=== PATIENT | female | born 1930 | race Caucasian/White ===

== ENCOUNTER 2017-04-21 13:22 | Emergency (ER) | payer MEDICARE, OTHER ==
[~2017-04-21] VITALS: Ht 160 cm; Wt 48.1 kg
[~2017-04-21 13:22] MED LIST: ADULT LOW DOSE81 MG PO; AMOXICILLIN500 M1 PO; ARMOUR THYROID30 MG PO; BIAXIN500 MG PO; IBUPROFEN600 MG PO; LISINOPRIL-HCT1 EACH PO; METOPROLOL TART50 MG PO; NORCO 5-325 TA1 EACH PO; NORVASC5 MG PO; OCUVITE TABLET1 EAC1 PO; PRILOSEC OTC20 MG PO; SIMVASTATIN40 MG PO; TRAMADOL HCL50 MG PO
[2017-04-21] MEDS ORDERED: ASPIR-LOW81 MG PO (14:18)
[2017-04-21] MEDS ORDERED: CIPRO500 MG PO (15:35)
--- NOTE | 2017-04-21 19:53 | EKG ---
[facility] [address] [place] [address] Signed Normal sinus rhythm Normal ECG When compared with ECG of 03-DEC-2015 13:38, premature ventricular complexes are no longer present Confirmed by ALEXIS CULP MD ([id number]) on 04/21/2017 7:53:18 PM Electronically Signed By: ALEXIS CULP MD 04/21/171952 PATIENT NAME: LAUREN KENT Electrocardiogram DATE OF : 34 PHYSICIAN: ALEXIS CULP MD REPORT #: [id number] REPORT IS CONFIDENTIAL AND NOT TO BE RELEASED WITHOUT AUTHORIZATION
== END 2017-04-21 16:58 | disposition home or self-care (01) ==
LOC: ED 13:22
PROC: 0T9B70Z Drainage of Bladder with Drainage Device, Via Natural or Artificial Opening (ICD-10-PCS; principal; 2017-04-21)
DX: N39.0 Urinary tract infection, site not specified (principal); I10 Essential (primary) hypertension; E03.9 Hypothyroidism, unspecified; Z85.3 Personal history of malignant neoplasm of breast; Z88.8 Allergy status to other drugs, medicaments and biological substances; Z79.899 Other long term (current) drug therapy; Z79.82 Long term (current) use of aspirin
CPT/HCPCS: 51701; 70450; 71045; 80053; 81001; 83605; 84484; 85025; 87077; 87088; 87186; 93005; 93010; 96374; 96375; 99284; J0696; J1200; J1956; J7120

== ENCOUNTER 2017-06-20 08:16 | Inpatient (IN) | payer MEDICARE, OTHER ==
[~2017-06-20] VITALS: Ht 160 cm; Wt 43.1 kg
--- OUTSIDE RECORDS SUMMARY | ~2017-06-20 | XMS | Clinical Summary ---
Demographics + + + | Address | [address] [place] [address] | | | [place] [address] | + + + | Home Phone | | + + + | Preferred Language | Unknown | + + + | Marital Status | | + + + | Yazdanism Affiliation | Unknown | + + + | Race | Unknown | + + + | Ethnic Group | Unknown | + + + Author + + + | Author | [facility] | | | and Javierana | + + + | Organization | [facility] | | | and Javierana | + + + | Address | Unknown | + + + | Phone | Unavailable | + + + Support + + +---------+ + | Name | Relationship | Address | Phone | + + +---------+ + | Lety Graf | ECON | Unknown | | + + +---------+ + Care Team Providers + +------+ + | Care Consumer Credit Counselor Name | Role | Phone | + +------+ + | Reza Layne | PP | | | MD | | | + +------+ + Allergies No Known Allergies Current Medications + + +---------+---------+------+------+-------+ | Prescription | Sig. | Disp. | Refills | Star | End | Statu | | | | | | t | Date | s | | | | | | Date | | | + + +---------+---------+------+------+-------+ | simvastatin | Take 40 mg by mouth | | | | | Activ | | (ZOCOR) 40 mg tablet | nightly. | | | | | e | + + +---------+---------+------+------+-------+ | metoprolol | Take 50 mg by mouth | | | | | Activ | | tartrate (LOPRESSOR) | 2 times daily. | | | | | e | | 50 mg tablet | | | | | | | + + +---------+---------+------+------+-------+ | thyroid (ARMOUR | Take 30 mg by mouth | | | | | Activ | | THYROID) 30 mg | Daily. | | | | | e | | tablet | | | | | | | + + +---------+---------+------+------+-------+ | aspirin 81 mg EC | Take 81 mg by mouth | | | | | Activ | | tablet | Daily. | | | | | e | + + +---------+---------+------+------+-------+ | multiple vitamins | Take 1 tablet by | | | | | Activ | | w/minerals (OCUVITE) | mouth Daily. | | | | | e | | TABS | | | | | | | + + +---------+---------+------+------+-------+ | Flaxseed, Linseed, | Take by mouth 2 | | | | | Activ | | (FLAXSEED OIL) 1000 | times daily. | | | | | e | | MG CAPS | | | | | | | + + +---------+---------+------+------+-------+ | cholecalciferol | Take 5,000 Units by | | | | | Activ | | (VITAMIN D-3) 5000 | mouth Daily. | | | | | e | | UNITS TABS | | | | | | | + + +---------+---------+------+------+-------+ | vitamin E 1000 | Take 1,000 Units by | | | | | Activ | | UNITS capsule | mouth 2 times daily. | | | | | e | + + +---------+---------+------+------+-------+ | amLODIPine | Take 5 mg by mouth | | | | | Activ | | (NORVASC) 5 mg | Daily. | | | | | e | | tablet | | | | | | | + + +---------+---------+------+------+-------+ | acetaminophen | Take 500 mg by mouth | | | | | Activ | | (TYLENOL) 500 mg | every 4 hours as | | | | | e | | tablet | needed for Pain. | | | | | | + + +---------+---------+------+------+-------+ | traMADol (ULTRAM) | Take 1 tablet by | 90 | 0 | 06/0 | | Activ | | 50 mg tablet | mouth every 6 hours | tablet | | 6/20 | | e | | | as needed for Pain. | | | 17 | | | + + +---------+---------+------+------+-------+ | gabapentin | 1 tab PO nightly x 5 | 120 | 0 | 06/0 | | Activ | | (NEURONTIN) 300 mg | days, then increase | capsule | | 6/20 | | e | | capsule | to 1 tab PO BID x 5 | | | 17 | | | | | days. If continue | | | | | | | | to tolerate well, | | | | | | | | increase to 1 tab PO | | | | | | | | TID. 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 | 04/13/2015 | + + + Family History + + +------+ + | Medical History | Relation | Name | Comments | + + +------+ + | Gout | Child | | | + + +------+ + | Lung cancer | Mother | | | + + +------+ + | Stroke | Mother | | | + + +------+ + | Diabetes | Other | | [place] | + + +------+ + + +------+ + + | Relation | Name | Status | Comments | + +------+ + + | Child | | Alive | | + +------+ + + | Child | | Alive | | + +------+ + + | Child | | | | + +------+ + + | Mother | | | | | | | (Age | | | | | 86) | | + +------+ + + | Other | | | | + +------+ + + Social History + +-------+ +--------+------+ | Tobacco Use | Types | Packs/Day | Years | Date | | | | | Used | | + +-------+ +--------+------+ | Never Smoker | | | | | + +-------+ +--------+------+ + +---+---+---+ | Smokeless Tobacco: | | | | | Never Used | | | | + +---+---+---+ + + +---------+ + | Alcohol Use | Drinks/We | oz/Week | Comments | | | ek | | | + + +---------+ + | No | 0 | 0.0 | | | | Standard | | | | | drinks or | | | | | | | | | | equivalen | | | | | t | | | + + +---------+ + + + + | Sex Assigned at | Date Recorded | | | | + + + | Not on file | | + + + Last Filed Vital Signs + + + + | Vital Sign | Reading | Time Taken | + + + + | Blood Pressure | 178/75 | 08/24/20161311 PDT | + + + + | Pulse | 82 | 08/24/20161311 PDT | + + + + | Temperature | - | - | + + + + | Respiratory Rate | - | - | + + + + | Oxygen Saturation | - | - | + + + + | Inhaled Oxygen | - | - | | Concentration | | | + + + + | Weight | 47.6 kg (105 lb) | 07/26/2016 1000 PDT | + + + + | Height | 160 cm (5' 3") | 07/26/2016 1000 PDT | + + + + | Body Mass Index | 18.6 | 07/26/2016 1000 PDT | + + + + Plan of Treatment + + + + + | Health Maintenance | Due Date | Last Done | Comments | + + + + + | Vaccine: | | | | | Dtap/Tdap/Td (1 - | 2 | | | | Tdap) | | | | + + + + + | Vaccine: | | | | | Pneumococcal 65+ | 8 | | | | Low/Medium Risk (1 | | | | | of 2 - PCV13) | | | | + + + + + | Vaccine: Influenza | | | | | (Season Ended) | 8 | | | + + + + + Results Not on filefrom Last 3 Months Insurance + +--------+ +--------+ +---------+ | Payer | Benefi | Subscriber | Type | Phone | Address | | | t Plan | ID | | | | | | / | | | | | | | Group | | | | | + +--------+ +--------+ +---------+ | MEDICARE | MEDICA | xxxxxxxxxx | Medica | [phone]-- | | | | RE | | re | [id number] | | | | PART A | | | | | | | AND B | | | | | + +--------+ +--------+ +---------+ | INDIVIDUAL ASSURANCE | INDIVI | [id number] | Indemn | | | | COMPANY | DUAL | | ity | | | | | ASSURA | | | | | | | NCE CO | | | | | | | MDCR | | | | | | | SUPPL | | | | | + +--------+ +--------+ +---------+ + +--------+ +--------+ + + | Guarantor Name | Accoun | Relation to | Date | Phone | Billing Address | | | t Type | Patient | of | | | | | | | | | | + +--------+ +--------+ + + | LAUREN VERDIN | Person | Self [birth year] | Home: | [address] [facility] [facility] | | [place] | padilla/Prasad | | 1931 | [phone] | [place] [address] | | | [place] | | | [phone] | | + +--------+ +--------+ + +
--- OUTSIDE RECORDS SUMMARY | ~2017-06-20 | XMS | Clinical Summary ---
Demographics + + + | Address | [address] [place] [address] | | | [place] [address] | + + + | Home Phone | | + + + | Preferred Language | Unknown | + + + | Marital Status | | + + + | Mormon Affiliation | Unknown | + + + | Race | Unknown | + + + | Ethnic Group | Unknown | + + + Author + + + | Author | [facility] | | | and Javierana | + + + | Organization | [facility] | | | and Javierana | [...] Team Providers + +------+ + | Care Cherry Sorter Name | Role | Phone | + [...] | Self | [birth year] | Home: | [address] [address] [facility] | | A[place]DRA | padilla/Prasad | | 1931 | [phone] | [place] [address] | | | [place] | | | [phone] | | + +--------+ +--------+ + +
--- OUTSIDE RECORDS SUMMARY | ~2017-06-20 | XMS | Clinical Summary ---
Demographics + + + | Address | [address] [place] [address] | | | [place] [address] | + + + | Home Phone | | + + + | Preferred Language | Unknown | + + + | Marital Status | | + + + | Adventist Affiliation | Unknown | + + + | Race | Unknown | + + + | Ethnic Group | Unknown | + + + Author + + + | Author | [facility] | | | and Javierana | + + + | Organization | [facility] | | | and Javierana [...] Team Providers + +------+ + | Care Dobby Loom Fixer Name | Role | Phone | + [...] | Self | [birth year] | Home: | [address] [facility] | | [place]A | padilla/Prasad | | 1931 | [phone] | [place] [address] | | | [place] | | | [phone] | | + +--------+ +--------+ + +
[~2017-06-20 08:16] MED LIST changes: +ASPIR-LOW81 MG PO; +CIPRO500 MG PO
[2017-06-20] MEDS ORDERED: NITROFURANTOIN100 M1 PO (08:31)
--- NOTE | 2017-06-20 13:19 | NUR ---
received report from Salome ROBBINS in ED via telephone. all questions answered.
--- NOTE | 2017-06-20 13:24 | NUR ---
MED REC COMPLETE WITH [facility] REFILL HISTORY.
--- NOTE | 2017-06-20 15:27 | NUR ---
PATIENT LYING IN BED WITH DAUGHTER AT BEDSIDE. 2MG MORPHINE GIVEN FOR LEFT FLANK PAIN. IVF INFUSING NOW AT 85ML/HR.
--- NOTE | 2017-06-20 16:42 | NUR ---
THIS RN CALLED DR HALL TO SEE WHEN HE WILL BE ASSESSING THIS PATIENT. REPORTS HOPEFULLY IN THE "NEXT HALF HOUR OR SO". PATIENT COMFORTABLE IN HER ROOM AFTER MORPHINE GIVEN. NO NAUSEA. MOST LIKELY PLAN FOR UPPER SCOPE.
--- NOTE | 2017-06-20 16:42 | NUR ---
patient resting in bed, family in room. Fresh ice water at bedside table. Call light in reach. No other needs at this time.
--- NOTE | 2017-06-20 17:48 | NUR ---
D5LR @ 85. KCL 30MEQ RIDERS X3. NEEDS ENDOSCOPY. HX RIGHT MASTECTOMY. EXTREMITY RESTRICTED. POTASSIUM 2.8 AT ADMIT.
--- NOTE | 2017-06-20 18:06 | NUR ---
THIS STOCK GRADER ASSISTED PATIENT UP TO BATHROOM AND BACK TO BED. PATIENT RESTING, FAMILY IN ROOM. CALL LIGHT IN REACH. FRESH ICE WATER AT BEDSIDE TABLE. NO OTHER NEEDS AT THIS TIME.
--- NOTE | 2017-06-20 20:06 | NUR ---
RECEIVED REPRT FROM DAY SHIFT RN. PATIENT IS RESTING IN BED. NO NEEDS NOTED CALL LIGHT IN REACH.
--- NOTE | 2017-06-20 21:05 | NUR ---
PATIENT ASSESMENT COMPLETED. EVENING MEDICATIONS GIVEN PER ORDER. PATIENT RATES PAIN AT A 5/10. PATIENT JUST RECEIVED IV TYLENOL. PATIENT DENIES THE NEED FOR FURTHER PAIN MEDICATIONS AT THIS TIME. PATIENT ASSISTED TO THE BSC A 1PA, PIVOT TRANSFER. PATIENT WAS ABLE TO VOID. PATIENT IS NOW BACK IN BED RESTING. SCDS IN PLACE. NO FURTHER NEEDS NOTED. CALL LIGHT IN REACH.
--- NOTE | 2017-06-20 22:00 | NUR ---
PATIENT CALLED AND REQUESTED PAIN MEDICATON. WHEN ROOM WAS ENTERED. PATIENT WAS CHAKING AND CRYING. PATIENT RATED HELENE AT AN 8/10 IN HER LEFT FLANK AREA TO LLQ. PATIENT GIVEN PRN PAIN MEDICATION AT THIS TIME. NO FURTHER NEEDS NOTED. CALL LIGHT IN REACH.
--- NOTE | 2017-06-20 22:45 | NUR ---
PATIENT ASSISTED TO THE BSC. PATIENT RATES PAIN AT A 6/10. PATIENT APPEARS TO STILL BE IN A LOT OF PAIN. PATIENT REQUESTED MORE PAIN MEDICATION. PATIENT GIVEN PRN PAIN MEDICATION TO TITRATE TO THE MAX DOSE. PATIENT WAS ABLE TO VOID. PATIENT IS BACK IN BED RESTING, SCDS IN PLACE. NO FURTHER NEEDS NOTED. NO NAUSEA NOTED. CALL LIGHT IN REACH.
--- NOTE | 2017-06-20 23:19 | NUR ---
PATIENT RECEIVED THE MAX DOSE OF PRN IV PAIN MEDCAITON. PATIENT PLACED ON A PULSE OX TO MONITOR WHILE SHW SLEEPS. PATIENT RATES PAIN AT A 4/10. PATIENT STATES "I AM COMFORTABLE NOW". NO FURTHER NEEDS NOTED. CALL LIGHT IN REACH.
--- NOTE | 2017-06-21 01:40 | NUR ---
PATIENTS IV TYLENOL GIVEN PER ORDER. PATIENT RATES PAIN AT A 4/10. PATIENT EDUCATED ON BEING NPO. PATIENT VERBALIZES UNDERSTANDING. PATIENT DENIES ANY FURTHER NEEDS AT THIS TIME. CALL LIGHT IN REACH.
--- NOTE | 2017-06-21 03:50 | NUR ---
PATIENT IS RESTING IN BED WITH EYES CLOSED. BREATHING IS EVEN AND UNLABORED. PULSE OX READINGS ARE WNL. CALL LIGHTIN REACH.
--- NOTE | 2017-06-21 05:27 | NUR ---
PATIENT RESTED WELL THROUGHTOUT THE SHIFT. PATIENT HAS BEEN NPO SINCE MDINIGHT. PATIENT RECEIVE PRN PAIN MEDICATION X2. PATIENT IS A 1PA, PIVOT TRANSFER TO THE [facility]. PATIENT HAS SCS IN PLACE. PATIENT IS RIGHT ARM RESTRICTED. PATIENT HAS URGENCY AT TIMES. OUTPUT IS QS. PATIENT IS AAOX3 AND USES CALL LIGHT.
--- NOTE | 2017-06-21 05:47 | NUR ---
PATIENT ASSISTED TO THE BSC. PATIENT IS A 1PA-SBA TO THE BS. PATIENT WAS ABLE TO VOID. PATIENT IS BACK IN BED RESTING WITH SCDS IN PLACE. PATIENT RATES PAIN AT A 5/10. PATIENT GIVEN SCHEDULED TYLENOL PER ORDER. PATIENTS MORNING ABX GIVEN PER ORDER. PATIENT DENIES ANY FURTHER NEEDS AT THIS TIME. CALL LIGHT IN REACH. VITALS TAKEN AND RECORDED.
--- NOTE | 2017-06-21 05:57 | NUR ---
PATIENT STARTED TO FEEL NAUSEOUS. PATIENT GIVEN PRN ZOFRAN.
--- NOTE | 2017-06-21 06:48 | NUR ---
PATIENT IS RESTING IN BED. PATIENT NAUSEA HAS SUBSIDED. NO FURTHER NEEDS NOTED. CALL LIGHT IN REACH.
--- NOTE | 2017-06-21 07:20 | NUR ---
PATIENT IN BED ULTRA SOUND TECH IN ROOM.
--- NOTE | 2017-06-21 07:51 | NUR ---
CALLED DR. HALL FOR NEW ORDER OF IV PAIN MEDICATION. PATIENT REPOSITIONED IN BED TO SIDE BY STUDENT NURSE. BLANKLET TO BACK. WASHCLOTH TO FA. PATIENT STATING HER BACK IS CAUSING A LOT OF PAIN. CRYING AND SHAKING AT ONE POINT. 2 MG MORPHINE GIVEN. ZOFRAN GIVEN EARLIER. EDUCATED ABOUT MEDICATION AND THE NEED TO GET MORE IF NEEDED.
--- NOTE | 2017-06-21 08:13 | NUR ---
PT REPORTS PAIN 8/10 AT HER BACK THIS IS NOT NEW FOR HER, SHE USUALLY HAS MEDICATIONS ON BOARD TO MANAGE IT. THIS BACK PAIN MADE WORSE THIS AM AFTER ULTRASOUND COMPLETE.
--- NOTE | 2017-06-21 09:00 | NUR ---
THIS NOCTURNIST PHYSICIAN WHEN IN ROOM TO CHECK ON PATIENT. PATIENT IS LAYING ON RIGHT SIDE WITH EYES CLOSE CRYING AND SHAKING. PATIENT STATED THAT SHE'S IN ALOT OF PAIN. RN NOTIFIED.
--- NOTE | 2017-06-21 09:08 | NUR ---
nino remains in pain. lower l back. called dr. taylor for new pain medication. dr. taylor ordered new pain medication. toradol 30mg iv once. updated patient and daughter that is in the room.
--- NOTE | 2017-06-21 09:50 | NUR ---
PATIENT RESTING IN BED AND STATES THAT SHE FEELS SO MUCH BETTER. FAMILY, RN AND STUDENT NURSE IN ROOM. NO NEEDS AT THIS TIME.
--- NOTE | 2017-06-21 09:52 | NUR ---
TORADOL IS TREATING PAIN AT THIS TIME. PATIENT STATING HER PAIN HAS NOW DECREASED FROM 10/10 TO 6/10. PATIENT IS ABLE TO LAUGH AT THIS TIME. STUDENT TO BE IN TO ASSIST WITH MORNING MEDICATION. HOLDING ALL PO MEDS AT THIS TIME.
--- NOTE | 2017-06-21 10:55 | NUR ---
PATIENT CALLED DUE TO HER PAIN STARTING TO INCREASE. 2 MG OF IV MORPHINE GIVEN. PATIENT ABLE TO RESTING FLAT IN BED. DAUGHTER IN ROOM. I ANDPO'S COMPLETE. PATIENT REMAINS NPO.
--- NOTE | 2017-06-21 11:22 | NUR ---
patient resting on r side. patient stating pain improved a small amount. no nausea at this time. patient stated she is able toget a little rest. dr. taylor to the floor at this time.
--- NOTE | 2017-06-21 11:44 | NUR ---
DR. HALL ROUNDED IN ROOM. PLAN TO GO TO SURGERY AT 230 FOR EGD
--- NOTE | 2017-06-21 12:15 | NUR ---
PATIENT RESTING IN BED WITH FAMILY IN ROOM PATIENT WOULD LIKE TO SHOWER AFTER HER SCOPE. HANDS AND FACE WASHED. PATIENT REFUSED ORAL CARE. PATIENT IS IN GOOD MOOD AND JOKING AROUND AND SMILING. CALL BUTTON IN REACH. NO OTHER NEEDS AT THIS TIME.
--- NOTE | 2017-06-21 13:01 | NUR ---
patient stating pain starting to increase to 8/10. 2 mg of morphine and 4 mg of zofran given. ekg done. lr with straight tubing in room for surgery.
--- NOTE | 2017-06-21 13:57 | NUR ---
PATIENT ASSISTED TO THE BS. PATIENT TOLERATED WELL. PATIENT REMAINS WEAK, BUT WAS ABLE TO TRANSFER WITH A ONE ASSIST. PATIENT AWAITING DAYSURGERY AT THIS TIME.
--- NOTE | 2017-06-21 14:25 | NUR ---
PT LAYING IN BED-ALERT, ORIENTED AND SUPPORTED BY HER DAUGHTER. SHE HAS A RATHER LIGHT-HEARTED MANNER. EXCITED TO HAVE ME COME BY. SHE STATED SHE IS HERE WAITING FOR SCOPE AT 1430, AND POSSIBLY SURGERY FOLLOWING. SHE DEFINATELY HAS "SPUNK", REACHED OUT TO HOLD MY HAND. PT REQUESTED PRAYER, THANKED ME FOR PRAYING, WILL CONTINUE TO FOLLOW NEEDED
--- NOTE | 2017-06-21 14:33 | NUR ---
PT TO DAYSURGERY WITH RN. LR ON SRTAIGHT TUBING. ANCEF DOSE ESL PROFESSOR FOR OR. REPORT GIVEN TO RN.
--- NOTE | 2017-06-21 16:28 | NUR ---
06/21/17 1628 Mar Peterson 1609-PATIENT ARRIVED TO PACU ON 3L NC. PATIENT AWAKE KETAMINE GTT INFUSING TO IV. PATIENT HAS CHRONIC PAIN REPORTS PAIN 6/10 WHICH IS SAME AT HOME. 1615-PATIENT NAUSEATED ABLE TO BRING UP CLEAR EMESIS. DRY HEAVING, BURPING HOB SAT UP. WASHCLOTH TO FOREHEAD. 1621-GLEN [employer] SHEET METAL MECHANIC ADMINISTERED METOPROLOL THROUGH IV FOR BP ELEVATED 184/76 HR 110
--- NOTE | 2017-06-21 17:29 | EKG ---
[facility] [address] [place] [address] Signed Normal sinus rhythm Possible Left atrial enlargement Borderline ECG When compared with ECG of 21-APR-2017 13:53, No significant change was found Confirmed by ALEXIS CULP MD ([id number]) on 06/21/2017 5:29:01 PM Electronically Signed By: ALEXIS CULP MD 06/21/17 1729 PATIENT NAME: HANNAH KENTROSENDO MONTAÑOARET Electrocardiogram DATE OF : 34 PHYSICIAN: ALEXIS CULP MD REPORT #: [id number] REPORT IS CONFIDENTIAL AND NOT TO BE RELEASED WITHOUT AUTHORIZATION
--- NOTE | 2017-06-21 18:10 | NUR ---
nino back to the room from pacu. pacu nurse and digital forensic analyst following patient. patient sitting up on stretcher. patient attmpeted to get over to bed before ready. needing reminding. patient needing a little reoriented to room. family at bedside. vitals taken. report given from [employer] intern.
--- NOTE | 2017-06-21 18:23 | NUR ---
PATIENT CONFUSED ONCE BACK TO BED. PATIENT HAVING SOME URINE URGANCY AND ATTEMPTING TO GET OUT OF BED TO GO TO . REORIENTED WELL. ASSISTED TO THE BSC WITH ASSISTANCE. PATIENT VOIDED. ATTEMPTS CHANGED. ASSISTED BACK TO BED. DAUGHTER IN ROOM TO ASSIST. PATIENT RATING PAIN 7/10. NO NAUSEA AT THIS TIME. PATIENT REFUSING CLEARS AT THIS TIME.
--- NOTE | 2017-06-21 18:53 | NUR ---
PATIENT RESTING IN BED. FAMILY AT BEDSIDE. BED ALARM IN PLACE. VITALS TAKEN. PAIENT BECOMING MORE ORIENTED. ANSWER CORRECT FOR DATE, YEAR, LOCATION, AND PROCEDURE. NEEDING REMINDED ABOUT HER DOCTOR. PATIENT TOLERATED SEVERAL BITES OF JELLO AND SIPS OF WATER. NO NAUSEA AT THIS TIME. PAIN CONTINUES TO BE AT A 6/10. PATIENT IS LAUGHING AND TALKING AT THIS TIME.
--- NOTE | 2017-06-21 20:07 | NUR ---
RECEIVED REPORT FROM DAY SHIFT RN. PATIENT IS RESTING IN BED FAMILY IN TH ROOM, BUT THEY ARE LEAVING FOR THE EVENING. PATIENT IS IN AND OUT OF CONFUSION. PATIENT TRIED TO GET OUT OF BED WITHOUT CALLING. PATIENT HAS BEEN FORGETFUL SINCE SURGERY AND CONFUSED. PATIENT MOVED FROM 115 TO ROOM 111 FOR BETTER OBSERVATION. BED ALARM IS ON AND CALL LIGHT IN REACH.
--- NOTE | 2017-06-21 21:46 | NUR ---
PATIENT ASSESMENT COMPLETED. PATIENTS EVENING MEDICATIONS GIVEN PER ORDER. PATIENTS BP MEDICATION HELD BP WAS UNDER HOLD PARAMETER. PATIENT RATES PAIN AT AN 8/10. DISCUSSED PAIN MEDICATION OPTIONS. PATIENT REQUEST TORADOL. PATIENT GIVEN PRN TORADOL PER ORDER. PATIENT DENIES ANY NAUSEA AT THIS TIME. SCDS IN PLACE. PATIENT IS OREINTED TO TIME, PLACE, AND EVENT. PATIENT IS FORGETFUL AT TIMES. PATIENT REORIENTS EASILY. PATIENT DENIES ANY FURTHER NEEDS AT THIS TIME. CALL LIGHT IN REACH.
--- NOTE | 2017-06-21 22:10 | NUR ---
PATIENT ASSISTED TO THE BS. PATIENT IS A SBA PIVOT TRAN[place] [facility] PATIENT WAS ABLE TO VOID. PATIENT IS NOW BACK IN BED RESTING. PATIENT HAS SCDS IN PLACE. PATIENT RATES PAIN AT AN 8/10. PATIENT GIRN PRN PAIN MEDICATION PER ORDER. PATIENT DENIES ANY FURTHER NEEDS. BED ALARM ON. CALL LIGHT IN REACH.
--- NOTE | 2017-06-21 23:03 | NUR ---
PATIENT IS RESTING IN BED WITH EYES CLOSED. PULSE OX READINGS ARE WNL. PATIENT IS ON RA. SCDS IN PLACE. BED ALRM ON. CALL LIGHT IN REACH.
--- NOTE | 2017-06-22 01:14 | NUR ---
PATIENT USED CALL LIGHT. PATIENT ASKED IF SHE HAD MISSED HER SURGERY. PATIENT EDUCATED THAT IT WAS NOT TIME FOR SURGERY. PATIENT VERBALIZES UNDERSTANDING. PATIENT RATES PAIN AT A 4/10. PATIENT DENIES THE NEED FOR PAIN MEDICATION. PATIENT DENIES ANY NAUSEA. PATIENT DENIES ANY FURTHER NEEDS CALL LIGHT IN. REACH. BED ALARM ON FOR SAFETY.
--- NOTE | 2017-06-22 01:53 | NUR ---
VITALS AND I&OS DONE AND CHARTED. PT NEEDS NOTHING ELSE AT THIS TIME.
--- NOTE | 2017-06-22 02:43 | NUR ---
WHEN CHECKING ON PATIENT IT WAS NOTICED THE PATIENT HAS REMOVED HER OXYGEN. PATIENT SPOT CHECKED WHILE ASLEEP. PATIENTS OXYGEN SATURATION IS 93%. WILL LEAVE OXYGEN OFF FOR NOW AND CONTINUE TO MONITOR. BED ALARM ON AND CALL LIGHT IN REACH. RR 17.
--- NOTE | 2017-06-22 03:34 | NUR ---
PATIENT IS RSETING IN BED WITH EYES CLSOED. PULSE OX READINGS ARE WNL. PATIENT ON RA. SCDS IN PLACE.
--- NOTE | 2017-06-22 04:47 | NUR ---
PATIENT ASSISTED TO THE BSC. PATIENT WAS ABLE TO VOID. PATIENTS PRE SURGICAL WIPE DOWN COMPLETED. PATIENT IS BACK IN BED RESTING. PATIENT DENIES ANY PAIN OR NAUSEA. PATIENT DENIES ANY FURTHER NEEDS CALL LIGHT IN REACH. BED ALARM ON FOR SAFETY.
--- NOTE | 2017-06-22 05:16 | NUR ---
PATIENTS MORNING MEDCIATIONS GIVEN PER ORDER. PATIENTS PRE PROCEDURE CHECK LIST COMPLETED. PATIENTS REQUIRED PAPER WORK IS IN THE CHART. NO NEEDS NOTED. PATIENT DENIES NAUSEA. PAIN RATED AT A 4/10. PATIENT DENIES THE NEED FOR PAIN MEDICATION AT THIS TIME. BED ALARM ON FOR SAFETY. CALL LIGHT IN REACH.
--- NOTE | 2017-06-22 05:18 | NUR ---
PATIENT RESTED WELL THROUGHTOUT THE SHIFT. PATIENT HAS BEEN NPO SINCE MIDNIGHT. PATIENT IS A SBA TO THE [facility]. VOIDING QS. RIGHT ARM RESTRICTED. LEFT WRIST BPS ONLY. SCDS IN PLACE. PATIENT WAS FORGETFUL AND CONFUSED AT TIMES AT THE BEGINNING OF THE SHIFT. PATIENT IS AAOX3 THIS AM. PATIENT RECEIVED PRN PAIN MEDICATION X2. PATIENTS SURGERY PREP COMPLETED. IV INFUSING IN LEFT UPPER ARM.
--- NOTE | 2017-06-22 05:31 | NUR ---
PER PT REQUEST I GAVE HER A WARM BLANKET.
--- NOTE | 2017-06-22 06:49 | NUR ---
DAY SURGERY STAFF CAME AND TRANSFEERED PATIENT FOR SURGERY TODAY. ALL QUESTIONS ANSWERED.
--- NOTE | 2017-06-22 07:37 | NUR ---
REPORT RECEIVED FROM HANNAH. PATIENT OFF THE FLOOR TO SURGERY AT ABOUT 0700 THIS AM.
--- NOTE | 2017-06-22 09:44 | NUR ---
06/22/17 0944 Mar Peterson 0961-PATIENT ARRIVED TO PACU ON 4L NC O2 SAT 100% PATIENT REACTIVE EYES OPEN BACK TO SLEEP. RR EVEN. SR 3 LAP SITES TO ABDOMEN LEONIDAS DRAIN IN PLACE SANGUINOUS DRAINAGE. BISHOP IN PLACE.
--- NOTE | 2017-06-22 11:28 | NUR ---
PATIENT TO FLOOR FROM PACU AT ABOUT 1055. REPORTED RECEIVED FROM PACU NURSE MANJULA. PATIENT AWAKE ALERT AND ORIENTED. REPORT PAIN AT THE RIGHT QUADRAND, RATED AT 5/10. PATIENT WAS MEDICATED. 2 LAP SITES ON THE MID ABD AND LEONIDAS DRAIN ON THE RLQ. PATIENT DENIED NAUSEA AT THIS TIME. MORNING MEDS ADMINISTERED. VS STABLE AND WNL. IV SITE PATENT AND FLUID INFUISING. VS TAKEN AND WNL. PATIENT IS TITRATED TO 1L OF 02 VIA NC AND SAT @ 96-98%. NO APPARENT DISTRESS. FAMILY AT BEDSIDE. WILL CONTINUE TO MONITOR.
--- NOTE | 2017-06-22 12:36 | NUR ---
PATIENT CALLED AND REQUESTED SOME PAIN MED FOR RIGHT QUADRANT PAIN THAT SHE RATED @ 6/10. PATIENT WAS MEDICATED. PATIENT DENIES NAUSEA AT THIS TIME. WILL CONTINUE TO MONITOR.
--- NOTE | 2017-06-22 14:30 | NUR ---
IN TO ROOM TO CHECK ON PATIENT. PATIENT REPORTED THAT HER PAIN IS BETTER. HAD SOME WATER. STATED THAT SHE DOES NOT WANT TO EAT ANYTHING AT THIS TIME, WILL EAT SOME JELLO FOR DINNER. RESTING IN BED QUIETLY. WILL CONTINUE TO MONITOR.
--- NOTE | 2017-06-22 14:33 | NUR ---
VISITED WITH PT JUST BEFORE SURGERY. STILL ALERT AND SPUNKY! REQUESTED PRAYER, WILL CONTINUE TO FOLLOW
--- NOTE | 2017-06-22 14:34 | NUR ---
CONNECTED WITH PT AND DAUGHTER DONOVAN BACK IN HER M/S RM FOLLOWING SURGERY. SHE WAS WRAPPED IN WARM TOWELS, AND VERY ALERT. WILL LET PT REST, AND CONTINUE TO FOLLOW NEEDED
--- NOTE | 2017-06-22 16:45 | NUR ---
PATIENT CALLED AND REPORTED 08/29 ABD. PATIENT WAS MEDICATED. PATIENT RESTING IN BED VS TAKING AND WNL. 02 SAT 95 ON O.5L VIA NC AND HR 80-85 PER PULSE OXYMETER. RESTING IN BED AT THIS TIME. FAMILY AT BEDSIDE.
--- NOTE | 2017-06-22 18:33 | NUR ---
PATIENT HAD DONE WELL FOR THIS SHIFT. HAD SURGERY THIS AM ABD DONE WELL AFTER COMING TO THE FLOOR. HAD 2 LAP SITES IN MID ABD AND LEONIDAS DRAIN ON THE RIGHT LOWER QUADRANT.BISHOP IN PLACE AND DRAINING WELL. IV SITE PATENT AND FLUID INFUSING @ 85ML/HR. PATIENT IS ON CLEAR LIQUID. TOLERATED WELL. NO NAUSEA. NO FEVER. PATIENT IS ON CONT. PULSE OX. CALL APPROPRIATELY. VS WNL.
--- NOTE | 2017-06-22 19:32 | NUR ---
BEDSIDE REPORT FROM ADA ROBBINS PT REPORTS PAIN 7 TORDOL I.V. GIVEN AT THIS TIME. PT REPORTS PAIN IS AT HER BACK NOT ABD. SHE REPORTS SHE IS FEELING BETTER TONIGHT AND WANTS TO GO HOME SOON.
--- NOTE | 2017-06-22 20:58 | NUR ---
CHARGE NURSE ROUNDING NOTE: IN BED, NO C/O PAIN OR RERQUESTS AT THIS TIME. CALL LIGHT AT BEDSIDE.IVF INFUSING W/O PROBLEMS, F/C PATENT, SCDS IN PLACE, PT ON ROOM AIR
--- NOTE | 2017-06-23 00:34 | NUR ---
PT RESTING QUIETLY IN BED EYES CLOSED NO DISTRESS NOTED. PT APPEARS TO BE SLEEPING
--- NOTE | 2017-06-23 01:27 | NUR ---
PT WOKE DISORIENTED, SHE REPORTS SPUSHED THE SIDE TABLE INTO GLASS DOOR, RN TO ROOM PT SITTING AT BEDSIDE, SHE REPORTS THE PAIN HAS MOVED AND IS AT HER RLQ. RE-ORIENTED PT THAT SHE HAD SURGERY AND SHE HAS A DRAIN TUBE AT THAT SPOT. SHE THEN SAID "OH, YEAH, OK" PT SETTLED BACK TO BED. SHE SAID SHE NEEDED A PAD FOR BETWEEN HER LEGS, PT REMINDED SHE HAS A BISHOP CATHETER IN PLACE. PT ADMINSTERED TORDOL AND MORPHINE PRN AT THIS TIME FOR PAIN 6/10 AT RLQ. PT NOW RESTING IN BED.
--- NOTE | 2017-06-23 01:29 | NUR ---
VITALS AND I&OS DONE AND CHARTED. BEDSIDE TABLE AND CALL LIGHT WITHIN REACH. FRESH WATER GIVEN.
--- NOTE | 2017-06-23 02:11 | NUR ---
pt called nurses station reports feeling nausea. pt given 8mg i.v. zofran at this time
--- NOTE | 2017-06-23 03:18 | NUR ---
PT RESTING QUIETLY IN BED EYES CLOSED RR EVEN 16 BPM NO DISTRESS NOTED. PT APPEARS TO BE SLEEPING
--- NOTE | 2017-06-23 04:06 | NUR ---
PT RESTING IN BED ALERT. SHE REPORTS THAT SHE IS FEELING BETTER NOW. REPORTS PAIN 4/10 AND SHE IS COMFORTABLE AT THIS TIME. SHE DENIES WANTING ANY PAIN MEDICATIONS AT THIS TIME.
--- NOTE | 2017-06-23 06:00 | NUR ---
DISCUSSED PAIN MANAGEMENT THIS AM WITH PATIENT, SHE HAS BEEN DECLINING ORAL PAIN COVERAGE SHE FELT HER STOMACH WOULD NOT TOLERATE. RN GAVE EDUCATION THAT ORAL PAIN MEDICATION WOULD PROVIDE MORE EVEN PAIN COVERAGE AND EATING SOMETHING WOULD HELP SETTLE THE STOMACH BEFORE PAIN MEDICATION. PT AGREED TO TRY CREAM OF WHEAT THIS MORNING FOR BREAKFAST, IF SHE TOLERATES RN WILL ADMINISTER ORAL PAIN MEDICATION.
--- NOTE | 2017-06-23 06:03 | NUR ---
PT HAS TOELRATED WATER AND BROTH. SHE IS WILLING TO TRY CREAM OF WHEAT THIS AM. SHE HAS NAUSEA ONCE, ZOFRAN WAS EFFECTIVE, SHE HAS REQUESTED PAIN COVERAGE FOR PAIN REGULARLY. SHE WOKE TWICE DISORIENTED AND WITH ANXIETY, SHE WAS EASILY REASSURED/CONSOLED AND RE-ORIENTED. SHE REPORTS SHE HAS NOT SLEPT OVER SHIFT. LEONIDAS DRAIN AREA RE-ENFORCED ONCE DUE TO DRAINAGE, URINE OUT QUANTITY SUFFICIENT. BISHOP GRAVITY DRAIN WNL. 25ML OF SEROUSSANGUINOUS DRAINAGE OUT LEONIDAS OVER SHIFT.
--- NOTE | 2017-06-23 07:59 | NUR ---
REPORT RECEIVED JAKOB ELLINGTON. PATIENT AWAKE IN BED, REPORT MINIMAL PAIN.BISHOP IN PLACE AND LEONIDAS DRAIN IN PLACE AND WNL. ABD LAP SITES WNL NO DRAINAGE. STERI STRIP IN PLACE. IV SITE PATENT AND FLUID INFUSING. NO DISTRESS NOTED. CALL LIGHT IN REACH.
--- NOTE | 2017-06-23 08:35 | NUR ---
PATIENT OFF THE FLOOR WITH PACU NURSE CARE FOR KETAMINE INFUSION.
--- NOTE | 2017-06-23 10:55 | NUR ---
PATIENT BACK TO FLOOR FROM GETTING KETAMINE INFUSION. REPORT RECEVEID FROM PACU NURSE DEEDEE. PATIENT AWAKE A&O. PATIENT DENIES NAUSEA, REPORTS MINIMAL PAIN. LEONIDAS DRAIN IN PLACE AND LAP SITES ON ABD WNL. BISHOP IN PLACE AND DRAINING WELL. PATIENT WAS ASSISTED TO BEDSIDE TO EAT TOLERATED IT WELL AND MORNING MEDS WAS ADMINISTERED. VS WNL. PATIENT EDUCATED ABOUT PLAN TO START PO PAIN MEDS IF NO NAUSEA. PATIENT AGREED WITH PLAN. CALL LIGHT IN REACH AND FAMILY AT BEDSIDE.
--- NOTE | 2017-06-23 10:58 | NUR ---
WHILE PT WAS IN PACU RECEIVING AN INFUSION, HER SON IN LAW CAME TO VISIT. HE SHARED WITH ME THAT THEY WOULD LIKE TO HAVE PT MOVE IN WITH THEM. SHE DOES LIVE NEXT DOOR, BUT PT HAS NO INTENTION OF THAT AT THIS POINT. WILL FOLLOW NEEDED
--- NOTE | 2017-06-23 12:35 | NUR ---
PATIENT RESTING IN BED, STATED THAT HER PAIN IS BETTER. ALLOWED PATIENT TO REST.
--- NOTE | 2017-06-23 14:15 | NUR ---
PATIENT RESTING IN BED DENIED NAUSEA, REPORTED BACK AND ABD. PATIENT MEDICATED FOR PAIN. IV ABX INFUSING. FRESH WATER GIVEN. FAMILY AT BEDSIDE.
--- NOTE | 2017-06-23 15:40 | NUR ---
PATIENT RESTING IN THE CHAIR REPORTED MILD PAIN IN THE BACK. NO NEED FOR PAIN MED AT THIS TIME PER PATIENT. FAMILY IN ROOM VISITING.
--- NOTE | 2017-06-23 15:41 | NUR ---
HELPED PATIENT GO FROM HER BED TO HER CHAIR. CALL LIGHT IS NEXT TO HER. HER FEET ARE ELEVATED. BLANKETS ON. GOING TO ORDERED HER DINNER FOR HER.
--- NOTE | 2017-06-23 18:38 | NUR ---
PATIENT HAD DONE WELL TODAY. UP TO CHAIR THIS PM AND DONE WELL. IV FLUID INFUSING WELL. PATIENT HAD KETAMINE INFUSION THIS AM. TOLERATED GENERAL DIET BUT MULD NAUSEA THIS PM AFTER DINNER.
--- NOTE | 2017-06-23 19:10 | NUR ---
SHIFT REPORT RECEIVED. OLIVIA RESTING IN BED. STATES SHE IS READY TO SLEEP NOW. REPORTS GOOD PAIN CONTROL. NO NEEDS AT THIS TIME. CALL LIGHT IN HAND.
--- NOTE | 2017-06-23 21:50 | NUR ---
EVENING MEDS GIVEN PER ORDER. PATIENT REQUESTING MORE PRN NORCO. 1 MORE TAB PROVIDED. PATIENT UP TO THE BATHROOM. URINE OUTPUT QS. SBA OR HOLDING HAND. PATIENT TOLERATES WELL. BACK TO BED. IV ABX GIVEN. IV SITE WNL. LUNGS ARE CLEAR. ABD IS FLAT, TENDER, BOWEL SOUNDS ACTIVE. SCDS IN USE.
--- NOTE | 2017-06-23 23:00 | NUR ---
PT UP TO BATHROOM. RN ASKED PT IF SHE WOULD LIKE TO CHANGE HAVE A NEW GOWN SHE HAS OLD DRAINAGE ON HER GOWN. PATIENT SAID "NO, NO, THATS OK. IT WILL JUST GET MORE ON IT."
--- NOTE | 2017-06-24 01:00 | NUR ---
PATIENT UP TO THE BATHROOM. REQUESTING PRN PAIN MEDS. IV TORADOL AND MORPHINE PROVIDED. DISCUSSED PAIN GOALS WITH PATIENT. WILL TRY 2 TAB OF NORCO NEXT TIME IT IS AVAILABLE. PATIENT IS BACK RESTING IN BED. CALL LIGHT IN HAND.
--- NOTE | 2017-06-24 03:32 | NUR ---
PATIENT SLEEPING SOUNDLY. RR 18. CALL LIGHT IN REACH.
--- NOTE | 2017-06-24 04:43 | NUR ---
PRN NORCO GIVEN, 2 TABS. PAIN 08/29. PATIENT RESTING IN BED.
--- NOTE | 2017-06-24 05:35 | NUR ---
VITALS AND I&OS DONE AND CHARTED. BEDSIDE TABLE AND CALL LIGHT WITHIN REACH. FRESH WATER GIVEN.
--- NOTE | 2017-06-24 06:48 | NUR ---
PATIENT SLEPT WELL DURING THE NIGHT. CALLED APPROPRIATELY. AAOX4. PRN NORCO X2, TORADOL & MORPHINE X1. BISHOP DC LAST NIGHT, URINE OUTPUT QS. IV FLUIDS PER ORDER. NO NAUSEA. LAP SITES X2, WNL. DRAIN RLQ. SBA TO BATHROOM.
--- NOTE | 2017-06-24 07:43 | NUR ---
BEDSIDE REPORT RECEIVED FROM PRACHI. ASSUMING PATIENT'S CARE. PATIENT APPEARS TO BE SLEEPING AT THE TIME OF REPORT. RR EVEN/UNLABORED. NO APPARENT DISTRESS NOTED. CALL LIGHT IN REACH.
--- NOTE | 2017-06-24 08:30 | NUR ---
PATIENT SITTING ON SIDE OF BED EATING BREAKFAST. CALL LIGHT WITHIN REACH. NO OTHER NEEDS AT THIS TIME.
--- NOTE | 2017-06-24 08:51 | NUR ---
PATIENT NEEDED TO GO TO THE RESTROOM, NURSE MAVIS EMPTIED HER LEONIDAS DRAIN AND GOT 90 OUT, SHE WANTED TO GET BACK INTO BED AND I OPENED THE BLIND FOR HER TO HAVE A LITTLE LIGHT SHINNING IN
--- NOTE | 2017-06-24 09:25 | NUR ---
DR HALL IN ROOM TO SEE AND EVALUATE PATIENT. MD ORANTES LEONIDAS DRAIN. PATIENT TOLERATED WELL.
--- NOTE | 2017-06-24 10:03 | OR ---
[facility] [address], [place] [address] Signed DATE OF OPERATION: 06/20/2017 SURGEON: Cyril Hall MD PREOPERATIVE DIAGNOSES: 1. Persistent nausea and episodic vomiting, questionable gastric wall thickening. 2. Chronic persistent left lower back pain. 3. History of perforated duodenal ulcer with repair including Ector patch in 2016 (Dr. David Dong). POSTOPERATIVE DIAGNOSES: 1. No evidence of gastric outlet obstruction or ulcer. 2. Chronic duodenitis. PROCEDURE: Esophagogastroduodenoscopy with biopsy. ANESTHESIA: Intravenous sedation, propofol infusion; Katie Villaseñor CRNA. INDICATION: This is an 86-year-old white woman was admitted by me on 06/20/2017, with a week of nausea, vomiting, and inability to tolerate oral intake. She was hypokalemic and dehydrated. She has suffered for quite some time from rather severe left lower back pain for which she sees a Shank Sander, Dr. Curiel in [place], but for which medications have been rather ineffective in management of her pain. She has recently tried cannabis oil preparations, which have not been helpful either. She increased her dose recently, but she has had nausea and vomiting problems that antedated the use of those medications. She did have a CT scan performed in the ER at the time of her admission, which showed a very elongated gallbladder as well as dilated biliary tree. She has been fluid resuscitated and electrolytes corrected. An ultrasound was performed this morning, which confirmed debris within the gallbladder and possible small stones. She shows no evidence of neoplasm. On the possibility of an abnormality of her stomach itself including gastric outlet obstruction, which was postulated initially as well as thickening of the stomach to suggest possible neoplasm, I have recommended upper endoscopy. The risks of bleeding, infection, and perforation were reviewed with her in detail, she understands. FINDINGS: There is no sign of gastric outlet obstruction. She did have chronic duodenitis. The Electronically Signed By: CYRIL HALL MD 06/24/17 1003 PATIENT NAME: LAUREN KENT OPERATIVE REPORT DATE OF : 34 REPORT #: [id number] PHYSICIAN: CYRIL HALL MD PCP: VALDEZ GUZMAN MD REPORT IS CONFIDENTIAL AND NOT TO BE RELEASED WITHOUT AUTHORIZATION [facility] [address], [place] [address] Signed stomach and the esophagus were otherwise normal. CLOtest was negative so far. DESCRIPTION OF PROCEDURE: The patient was brought to the endoscopy suite and given topical Hurricaine spray and hypopharyngeal anesthesia. A bite block was placed. She lay in the supine position due to discomfort of her left hip to lay on her left side. She was given propofol infusion sedation by the medical collections, Katie Villaseñor CRNA, and an Olympus video upper endoscope was passed in the hypopharynx once sedation was induced. The vocal cords appeared normal. The scope was advanced in the esophagus without problem throughout its length, it was essentially normal. The scope was passed to the stomach, which was insufflated with air. There was a fair amount of saliva and so forth, but no biliary fluid. Rugal folds appeared normal. The scope was advanced to the antrum, where the pylorus was identified and easily passed through it, which was completely patent without sign of stenosis. The duodenal bulb was inflamed, and second and third portions were normal. Biopsies were taken of the duodenal bulb. Scope was withdrawn. A biopsy was then taken of the antrum for both RUIZ and pathologic testing. There was no distinct finding of a neoplasm per se. Thickening of the stomach may be possible, though it was not quite obvious on upper endoscopy. Retroflexed view was undertaken showing a reasonable flap valve. The scope was straightened, withdrawn, and distal biopsies of the esophagus were taken as well. Scope was carefully withdrawn and removed. There were no other findings of concern. She was taken to recovery room in good condition. Given her rather severe persistent left lower back pain and degenerative disease associated with it and essentially unresponsiveness to usual medications. It was suggested by the medical collections that a ketamine infusion therapy be initiated. We will do this in the recovery room as it can be monitored at that time. It is expected to take about 45 minutes. Additionally, given the findings on gallbladder, cholecystectomy will be scheduled for tomorrow if acceptable patient and her daughter. We have discussed this before and she is quite amenable to it. MD JAZMÍN Felipe/MODL /[id number] Electronically Signed By: CYRIL HALL MD 06/24/17 1003 PATIENT NAME: LAUREN KENT OPERATIVE REPORT DATE OF : 34 REPORT #: [id number] PHYSICIAN: CYRIL HALL MD PCP: VALDEZ GUZMAN MD REPORT IS CONFIDENTIAL AND NOT TO BE RELEASED WITHOUT AUTHORIZATION [address], [place] [address] Signed cc: MD Valdez Olmos MD Copies: MARY RAZA ADAM TERRY MD HITZMAN, JONATHAN MD ~ Electronically Signed By: CYRIL HALL MD 06/24/17 1003 PATIENT NAME: LAUREN KENT OPERATIVE REPORT DATE OF : 34 REPORT #: [id number] PHYSICIAN: CYRIL HALL MD PCP: VALDEZ GUZMAN MD REPORT IS CONFIDENTIAL AND NOT TO BE RELEASED WITHOUT AUTHORIZATION
--- NOTE | 2017-06-24 10:03 | HP ---
[facility] [address], [place] [address] Signed ADMISSION DATE: 06/20/2017 REASON FOR ADMISSION: Persistent nausea and dry heaves for the past week with distant history of perforated duodenal ulcer with repair as well as chronic low back pain. HISTORY OF PRESENT ILLNESS: This 86-year-old white woman presented to the emergency room today, being sent directly to the emergency room from Dr. Layne's office. Dr. Layne sees her about her chronic back pain. She is known to have recurrent urinary tract infections in the past as well. She had urinary tract infection that began in April. She was treated with Cipro, which she did not tolerate due to a rash and was then continued on amoxicillin for 3 different courses. In the last week, she has had some chills and left lower back pain. This, however, is a chronic problem and she is seen back Dr. Curiel and others in [facility] for chronic back pain problems. Notably, she takes tramadol for that most recently. She has been avoiding nonsteroidal medication, though has taken Tylenol with variable benefit. She presented to the emergency room where she was evaluated by Dr. Rivera. IV fluids were administered as she was tachycardic and blood cultures obtained and CT scan was obtained to rule out diverticulitis versus perinephric abscess or pyelonephritis. The findings on the CT scan showed no evidence of diverticulitis or inflammatory change of the kidney on the left side to account for her left back pain. It is notable that her inability to tolerate oral intake has resulted in some clinical dehydration and hypokalemia. Notable on the CT scan was a markedly elongated gallbladder as well as dilated common bile duct both intra and extrahepatic, but no obvious stone. There is no sign of pancreatic neoplasm proper. She is admitted for further evaluation and care on the basis of her persistent nausea, inability to tolerate oral intake and clinical dehydration as well as ongoing treatment of urinary tract infection and chronic back pain. PAST MEDICAL HISTORY: Include: 1. Hypertension. 2. Back pain as previously described, chronic. 3. Hypothyroidism. Electronically Signed By: CYRIL HALL MD 06/24/17 1003 PATIENT NAME: LAUREN KENT HISTORY AND PHYSICAL DATE OF : 34 REPORT #: [id number] PHYSICIAN: CYRIL HALL MD PCP: VALDEZ LAYNE MD REPORT IS CONFIDENTIAL AND NOT TO BE RELEASED WITHOUT AUTHORIZATION [facility] [address], [place] [address] Signed CURRENT MEDICINES: Include: 1. Metoprolol 50 mg p.o. b.i.d. 2. Baylis Thyroid 30 mg p.o. daily. 3. Amlodipine (Norvasc) 5 mg p.o. daily. 4. Aspirin 81 mg p.o. daily. 5. Nitrofurantoin 100 mg p.o. b.i.d. 6. Simvastatin 40 mg p.o. at bedtime as well as a Ocuvite vitamin tablet. SOCIAL HISTORY: She lives alone, not far from her daughter. Her daughter accompanies her now. The patient lives in [facility]. Her daughter is Angelijett Graf. REVIEW OF SYSTEMS: She denies any chest pain. Has no dysphagia, hematemesis or blood per rectum. She has no urinary symptoms, specifically no dysuria or hematuria. PHYSICAL EXAMINATION: GENERAL: This is a thin white woman, who looks alert and oriented and not the slightest bit demented. She is very thin. She had no active vomiting at this time. HEENT: Trachea is midline. There is no carotid bruit. CHEST: Shows diminished breath sounds bilaterally, but no tachypnea. ABDOMEN: Nondistended. There is a midline incision that is well healed. There is no sign of incisional hernia. Palpation reveals no focal tenderness, mass or ascites. EXTREMITIES: Show no evidence of edema or clubbing. LABORATORY DATA: Show white count 9.0, hematocrit 43.3, platelets 256,000. Creatinine is 0.77, potassium 2.8, chloride 104, bicarb 22. Liver enzymes are normal. I reviewed the CT scan as well. ASSESSMENT: Predominant reason for which she has been admitted is her vomiting, inability to tolerate oral intake, as well as associated dehydration. IV hydration efforts have been underway and potassium repletion has been ordered as well. There is an impression by the radiologist that she has gastric wall thickening. That is certainly a possibility, particularly if she has any relative gastric outlet obstruction, which can overtime cause a gastric wall thickening. More likely than not, this is an artifact. The possibility of gastric cancer though consideration is less likely. It is noted that she did have H pylori infection in the past, probably Electronically Signed By: CYRIL HALL MD 06/24/17 1003 PATIENT NAME: LAUREN KENT HISTORY AND PHYSICAL DATE OF : 34 REPORT #: [id number] PHYSICIAN: CYRIL HALL MD PCP: VALDEZ LAYNE MD REPORT IS CONFIDENTIAL AND NOT TO BE RELEASED WITHOUT AUTHORIZATION [address] [address] Signed contributing to her ulceration. The dilated biliary tree is of some concern and her gallbladder was impressively elongated. With the dilation of the common bile duct, common hepatic duct and gallbladder, relative obstruction of the ampulla is a consideration. I see no double duct sign or pancreatic ductal dilatation concurrently. As regard to the back pain, it is a chronic problem for which she sees a [employer] and others. She has taken tramadol for that with marginal benefit really. Her chronic urinary tract infection appears not to be associated with pneumaturia, therefore, a colovesical fistula is quite unlikely, though I will review these particulars with her again in the near future. For now, intravenous hydration is underway and potassium repletion underway as well. We will obtain a gallbladder ultrasound tomorrow to assess for stones or other information that may account for her dilated biliary tree. As her liver enzymes and so forth were entirely normal, she may not have acute obstructive process from choledocholithiasis, but may rather have ampullary papillitis or less likely neoplasm. Ultimately, upper endoscopy will be needed to be undertaken to assess that there is no gastric outlet obstruction given her operative history of Ector patch repair of perforated duodenal ulcer. Additionally, the possibility of recurrent H pylori is considered also. MD JAZMÍN Felipe/JEFF /[id number] cc: MD David Dunlap MD Phong Ngo Adam Terry Zierenberg, MD Electronically Signed By: CYRIL HALL MD 06/24/17 1003 PATIENT NAME: LAUREN KENT HISTORY AND PHYSICAL DATE OF : 34 REPORT #: [id number] PHYSICIAN: CYRIL HALL MD PCP: VALDEZ LAYNE MD REPORT IS CONFIDENTIAL AND NOT TO BE RELEASED WITHOUT AUTHORIZATION [address] [address] Signed Copies: VALDEZ LAYNE MD, ANDREW L MD NGO, PHONG ZIERENBERG, ADAM TERRY MD ~ Electronically Signed By: CYRIL HALL MD 06/24/17 1003 PATIENT NAME: LAUREN KENT HISTORY AND PHYSICAL DATE OF : 34 REPORT #: [id number] PHYSICIAN: CYRIL HALL MD PCP: VALDEZ LAYNE MD REPORT IS CONFIDENTIAL AND NOT TO BE RELEASED WITHOUT AUTHORIZATION
--- NOTE | 2017-06-24 10:03 | OR ---
[facility] [address], [place] [address] Signed DATE OF OPERATION: 06/22/2017 SURGEON: Cyril Hall MD PREOPERATIVE DIAGNOSIS: Persistent nausea, inability to eat with dilated common bile duct and elongated gallbladder with chronic cholecystitis and stone debris within gallbladder. POSTOPERATIVE DIAGNOSES: 1. Persistent nausea, inability to eat with dilated common bile duct and elongated gallbladder with chronic cholecystitis and stone debris within gallbladder. 2. Narrowing of distal common bile duct without sign of neoplasm. PROCEDURES: 1. Laparoscopic cholecystectomy with cholangiogram. 2. Laparoscopic common bile duct exploration. 3. Ampullary dilatation with Taut balloon catheter system and flushing of common bile duct. 4. Flexible choledochoscopy. 5. Surgeon-directed fluoroscopy. ANESTHESIA: General endotracheal; Katie Charleen, BOAT PULLER and local 0.25% Marcaine with epinephrine (10 mL) DRAIN: A 7 mm Charlie. INDICATIONS: This 86-year-old white woman was admitted by me on June 20, 2017 with longstanding history of progressive left lower back pain. She was directly referred to the emergency room by Dr. Layne, who had seen her in the office antecedent to her visit to the ER. She had over a week of poor oral intake, nausea, and inability to eat or keep anything down essentially. She was noted to have a potassium of 2.9, consistent with her vomiting and clinical dehydration. Her back pain is longstanding and various methods have been used to attempt to control for degenerative spine problem. A CT scan was performed under the direction of Dr. Rivera, the emergency room physician, which demonstrated an impressively elongated gallbladder with a dilated biliary tree. No evidence of double duct sign (to indicate pancreatic carcinoma). There were no Electronically Signed By: CYRIL HALL MD 06/24/17 1003 PATIENT NAME: LAUREN KENT OPERATIVE REPORT DATE OF : 34 REPORT #: [id number] PHYSICIAN: CYRIL HALL MD PCP: VALDEZ LAYNE MD REPORT IS CONFIDENTIAL AND NOT TO BE RELEASED WITHOUT AUTHORIZATION [facility] [address], [place] [address] Signed stones seen on CT scan. She was admitted for further workup and repletion of her dehydration and electrolyte problems. An ultrasound was performed yesterday, which showed debris within the gallbladder itself. No stone within the common duct itself, however. Notably, her liver enzymes are not particularly remarkable. She shows no evidence of jaundice. There was some concern of possible gastric outlet obstruction based on appearance of her stomach and mindful of a prior history of perforated duodenal ulcer in 2016, having undergone surgical intervention by Dr. David Dong, which included closure and an omental patch. On that basis, yesterday she underwent upper endoscopy, which showed no evidence of gastric outlet obstruction. No sign of persistent duodenal ulcer, only chronic duodenitis. Given her findings, I have recommended cholecystectomy. A laparoscopic approach would be intended. The risks of bleeding, infection, bile duct injury, need for open procedure, need for common duct exploration by various methods, and so forth were reviewed with the patient and her family including her daughter and son-in-law. There is no guarantee that cholecystectomy will improve her situation, though I think it unlikely well. They agree to proceed. FINDINGS: The patient is thin and frail overall, but mentally quite alert and engaging. Operative findings included a senescent liver with an impressively elongated gallbladder with chronic inflammation. The gallbladder was on a narrow mesentery hanging from the liver. Cholangiogram showed dilated intrahepatic and extrahepatic biliary ducts and slow passage of contrast through the ampullary area. On that basis, a laparoscopic transcystic duct exploration was undertaken, ultimately also with flexible choledochoscopy. Ampullary dilation was undertaken with a balloon catheter as was the cystic duct dilation. Flexible choledochoscopy allowed with a uretero-nephroscope passage into the duodenum, showing no evidence of ampullary neoplasm or sign of retained stone after having flushed the common duct. Completion of cholangiogram showed no sign of filling defect and flow into the duodenum from the common duct system, which was improved. There were no other findings of concern. A long midline incision did have some adhesions to it, but not much. DESCRIPTION OF PROCEDURE: The patient was brought to the operating room, given a general endotracheal anesthetic. Preoperative antibiotic Ancef was given and an additional dose given immediately preoperatively. A Castro catheter was placed based on possibility of a lengthy operation Electronically Signed By: CYRIL HALL MD 06/24/17 1003 PATIENT NAME: LAUREN KENT OPERATIVE REPORT DATE OF : 34 REPORT #: [id number] PHYSICIAN: CYRIL HALL MD PCP: VALDEZ LAYNE MD REPORT IS CONFIDENTIAL AND NOT TO BE RELEASED WITHOUT AUTHORIZATION [facility] [address] [place] [id number] Signed as well as known underlying incontinence generally. The abdomen was prepared with a chlorhexidine solution after a satisfactory general endotracheal anesthesia. Notably, a ketamine drip was infused during the course of operation as well as a partial solution to her chronic pain syndrome. After sterile draping, an infraumbilical incision was made and using an open Mónica cannula technique, the abdomen was entered and pneumoperitoneum achieved to a level of 10 mmHg of carbon dioxide gas. Intraabdominal inspection was undertaken showing no sign of ascites or carcinomatosis. The liver was senescent, as would be expected consistent with her age of 86 years. Three additional trocars were placed in usual configuration in the epigastric, right midclavicular, and right anterior axillary line. The gallbladder was found to be quite elongated and floppy and tended attached to the liver by a long narrow mesentery. The cystic duct was elongated as well. Using blunt and electrocautery dissection, the triangle of Calot was dissected free and a cystic arterial branch doubly clipped and divided. A clip was applied across gallbladder cystic duct junction and a transverse choledochotomy made in the cystic duct. Egress of clear bile was noted with retrograde milking of the duct. Using the Rivera type cholangiocatheter, intraoperative cholangiography was undertaken showing free flow of contrast in the biliary tree, but with impediment of flow through the ampulla. It appeared dilated down to the ampullary area with a narrow opening. In time, a minimal amount of contrast spilled into the duodenum. Visualization of the more proximal biliary radicals showed them to be markedly dilated, consistent with relative duct obstruction. It was unclear if there was actual stone, as there did appear to be a lucency in the distal duct. On that basis, a laparoscopic common duct exploration was deemed appropriate. An additional black 5 mm Taut trocar was placed in alignment with the cystic duct. A urologic wire (Nitinol straight tip hydrophilic urologic wire 0.035 inches) was passed into the cystic duct and on fluoroscopic control, advanced down the common duct. Given the flexible nature of the wire, it appeared to bend in the distal portion of the duct and was not able to be advanced on that basis. With fluoroscopic control, the wire was withdrawn with careful manipulation and ultimately passed through the ampullary area into the duodenum. A Taut balloon catheter was passed over the wire and under direct visualization with fluoroscopy, the radiopaque markers were advanced down the cystic duct into the common duct and ultimately across the ampulla. Under fluoroscopic control, ampullary dilation was undertaken with radiocontrast in the balloon. Study pressure was maintained over the ampulla at this point. Electronically Signed By: CYRIL HALL MD 06/24/17 1003 PATIENT NAME: LAUREN KENT OPERATIVE REPORT DATE OF : 34 REPORT #: [id number] PHYSICIAN: CYRIL HALL MD PCP: VALDEZ LAYNE MD REPORT IS CONFIDENTIAL AND NOT TO BE RELEASED WITHOUT AUTHORIZATION [facility] [address], [place] [address] Signed The balloon was then withdrawn after deflating it and aligned along the cystic duct itself. With all due care, it was inflated and under direct visualization and held study to allow for dilation of the cystic duct. Once cystic duct dilation was complete, the wire was removed and using sterile saline, the duct gently flushed and without resistance. Cholangiography was then undertaken through the Taut catheter showing contrast flow into the biliary tree and emptying into the duodenum. There was still some impediment to flow and on that basis, a flexible choledochoscopy was deemed appropriate. A uretero-nephroscope was passed through the Taut trocar, carefully manipulated into the cystic duct and passed antegrade down the duct allowing for visualization. There was no evidence of retained stone or debris and the scope was passed into the duodenum, demonstrating the duodenal mucosa. There was no sign of ampullary neoplasm in the region of the ampulla proper. Careful withdrawal of the scope showed no findings of concern. The choledochoscope was removed and using the Rivera type cholangiocatheter system, again a completion of cholangiogram undertaken showing contrast flow into the duodenum with no filling defect or injury to the duct. The cystic duct was triply clipped and the gallbladder then dissected free in a retrograde fashion using electrocautery. The gallbladder was placed in an endobag and extracted through the infraumbilical port site without problem, opened on the back table by the circulating nurse and found to have thick tarry-type bile and some shards of stone debris-type material. There was no well-formed stone, however. A 7 mm flat Charlie drain was passed through a right-sided trocar in place beneath the liver edge in the subhepatic space and attached to the skin with nylon suture. Irrigation was undertaken more fully showing no sign of bile leak or other problems. The trocars were removed under direct visualization showing no sign of bleeding. The infraumbilical fascial incision and epigastric fascial incision were reapproximated with interrupted 0 Vicryl suture. This 10 mL of 0.25% Marcaine with epinephrine was injected locally and the skin closed with interrupted 3-0 Vicryl. Steri-Strips were applied. The patient was ultimately extubated and transferred to recovery room in good condition having suffered no complication. Sponge, needle, and instrument counts reported as correct x3. The operation was rather prolonged, complicated, and difficult, as it is not uncommonly the case. Electronically Signed By: CYRIL HALL MD 06/24/17 1003 PATIENT NAME: LAUREN KENT OPERATIVE REPORT DATE OF : 34 REPORT #: [id number] PHYSICIAN: CYRIL HALL MD PCP: VALDEZ LAYNE MD REPORT IS CONFIDENTIAL AND NOT TO BE RELEASED WITHOUT AUTHORIZATION [address] [place], [place] [address] Signed MD JAZMÍN Felipe/JEFF /[id number] cc: MD David Dunlap MD Phong Ngo Copies: VALDEZ LAYNE MD, ANDREW L MD NGO,MARY ~ Electronically Signed By: CYRIL HALL MD 06/24/17 1003 PATIENT NAME: LAUREN KENT OPERATIVE REPORT DATE OF : 34 REPORT #: [id number] PHYSICIAN: CYRIL HALL MD PCP: VALDEZ LAYNE MD REPORT IS CONFIDENTIAL AND NOT TO BE RELEASED WITHOUT AUTHORIZATION
--- NOTE | 2017-06-24 11:13 | NUR ---
PATIENT ASSISTED TO THE RESTROOM. 1 PERSON ASSIST. PATIENT DID ORAL CARE AND BED BATH IN BATHROOM. CLEAN GOWN. FRESH LINEN. PATIENT SITTING UP IN BED NOW. FRESH WATER. CALL LIGHT WITHIN REACH. NO OTHER NEEDS AT THIS TIME.
--- NOTE | 2017-06-24 11:49 | NUR ---
THIS BROOM WORKER ASSISTED PATIENT TO THE RESTROOM. 1 PERSON SBA. PATIENT NOW SITTING UP IN BED EATING LUNCH. FAMILY MEMBERS IN ROOM.
--- NOTE | 2017-06-24 12:10 | NUR ---
IN TO ROOM TO CHECK ON PATIENT. PATIENT ATE 95% OF HER LUNCH. DENIES NAUSEA. PATIENT REQUESTS TO GO FOR A WALK LATER AFTER NAPPING. RESTING IN BED AT THIS TIME. CALL LIGHT IN REACH. DOOR CLOSED FOR QUIETNESS. WILL CONTINUE TO MONITOR.
--- NOTE | 2017-06-24 12:40 | NUR ---
PATIENT TO FLOOR FROM CCU VIA CHAIR. PATIENT IS ALERT BUT NOT ORIENTED. IN ROOM. ASSESSMENT DONE. VS TAKEN AND WNL. PATIENT RESTING IN THE CHAIR AT THIS TIME. CHAIR ALARM ON.
--- NOTE | 2017-06-24 13:42 | NUR ---
PATIENT WAS UP AMBULATING FROM HER ROOM AROUND THE NURSES STATION THEN BACK TO BED WITH ITZEL NANCE. TOLERATED WELL. PATIENT IS BACK TO BED AT THIS TIME RESTING. WILL CONTINUE TO MONITOR.
--- NOTE | 2017-06-24 13:46 | NUR ---
AMBULATED PATIENT AROUND NURSE STATION AND BACK TO BED. TOLERATED WELL. UP TO BATHROOM BEFORE WALK. URINATED 350ML.
--- NOTE | 2017-06-24 14:46 | NUR ---
PATIENT RELAXING IN BED. PATIENT STATES PAIN LEVEL IS A 4 OUT OF 10 FOR HER BACK AND HER STOMACH IS A 6 OUT OF 10. REQUESTING PAIN MEDICATION. RN NOTIFIED.
--- NOTE | 2017-06-24 16:09 | NUR ---
PATIENT UP TO BEDSIDE COMMODE, PATIENT WAS MEDICATED FOR PAIN BY ITZEL GAMBLE.
--- NOTE | 2017-06-24 18:20 | NUR ---
PATIENT HAD DONE WELL TODAY. WALKED ONCE TODAY IN THE [place]. HAS BEEN UP TO BATHROOM MULTIPLE TIMES. PAIN CONTROL WITH NORCO AND MORPHINE. LEONIDAS DRAIN WAS DC THIS AM. LAP SITES ON ABD OPEN TO AIR WITH STERI STRIP. DRAIN SITE COVERED WITH BANDAID. PATIENT WAS A LITTLE ANXIOUS ABOUT GOING HOME TODAY. DR HALL REASSURED PATIENT. JUNE DC TOMORROW. PATIENT IS SALIN LOCKED AT THIS TIME. ATE MOST HER MEALS. VOIDED Q/S.
--- NOTE | 2017-06-24 19:00 | NUR ---
SHIFT REPORT RECEIVED. PATIENT IN BED. FEELING NAUSEAOUS. BUT ONLY DRY HEAVES THIS FAR. DAY RN PROVIDED PRN ZOFRAN PER ORDER.
--- NOTE | 2017-06-24 19:01 | NUR ---
PATIENT RELAXING IN BED. CALL LIGHT WITHIN REACH. NO OTHER NEEDS AT THIS TIME.
--- NOTE | 2017-06-24 20:50 | NUR ---
EVENING MEDS GIVEN. PATIENT WAS UP TO THE BATHROOM WITH FACSIMILE OPERATOR ASSIST. PATIENT HAS 7/10 PAIN IN HER ABD. PRN NORCO PROVIDED. NO NAUSEA AT THIS TIME. IV FLUIDS INFUSING PER ORDER. ABD IS FLAT, TENDER, BOWEL SOUNDS ACTIVE. DRESSING C/D/I. SCDS IN USE. PATIENT DENIES ANY NEEDS AT THIS TIME. CALL LIGHT IN HAND.
--- NOTE | 2017-06-24 21:22 | NUR ---
HELPED PT TO THE BATHROOM WITH HER FWW AND BACK TO BED. CRYO PUT ON. PER PT REQUEST I ASKED HER RN ETTA IF SHE COULD HAVE SOMETHING FOR PAIN. PER PT REQUEST I GOT HER TWO WARM BLANKETS. BEDSIDE TABLE AND CALL LIGHT WITHIN REACH.
--- NOTE | 2017-06-24 21:38 | NUR ---
PT CALLED STATING HER PAIN IS INCREASING AND IS IN TEARS. SHE STATES SHE IS A 9/10 AT THIS TIME. ADMINISTERED IV MORPHINE SLOW PUSH 4MG. BEFORE THIS RN LEFT THE ROOM, THE PT STARTED TO CALM DOWN AND STATED THE PAIN WAS DROPPING. PT DENIES FURTHER NEEDS AT THIS TIME. CALL LIGHT IS WITHIN REACH.
--- NOTE | 2017-06-24 22:30 | NUR ---
IV ABX ADMINISTERED. PATIENT IS FEELING SLIGHTLY NAUSEOUS, BUT AFTER A FEW DEEP BREATHS STATES "I THINK IT HAS PASSED". SHE APPEARS COMFORTABLE. REPORTS GOOD PAIN CONTROL AT THIS TIME.
--- NOTE | 2017-06-24 23:09 | NUR ---
HELPED PT GET FROM HER BED TO THE BSC WITH HER FWW. PT WANTED PRIVACY, SHE SAID SHE WILL USE HER CALL LIGHT WHEN SHE IS DONE. CALL LIGHT WITHIN REACH.
--- NOTE | 2017-06-25 01:38 | NUR ---
PATIENT RESTING IN BED. APPEARS TO BE SLEEPING SOUNDLY. RR 20. CALL LIGHT IN REACH.
--- NOTE | 2017-06-25 02:22 | NUR ---
PATIENT RESTING IN BED. AWAKE WHEN RN ENTERED THE ROOM. REPORTS PAIN /. PRN NORCO PROVIDED. PATIENT UP TO THEBATHROOM. SBA WITH FWW. PATIENT TOLERATES WELL. PRODUCTION MANAGER ASSISTED HER BACK TO BED AND SHE REPORTS NAUSEA. PRN ZOFRAN PROVIDED. NO EMESIS OF NOW.
--- NOTE | 2017-06-25 05:41 | NUR ---
HELPED PT TO THE BSC AND BACK TO BED. PT WAS DRY HEAVING THE ENTIRE TIME. I INFORMED HER RN PRACHI. PT WANTS TO SIT ON THE EDGE OF THE BED FOR RIGHT NOW.
--- NOTE | 2017-06-25 05:44 | NUR ---
SPOKE WITH ABOUT PATIENT'S NAUSEA. IV REGLAN AND PHENERGAN ORDERS RECEIVED. VERIFIED USING READ BACK METHOD.
--- NOTE | 2017-06-25 05:58 | NUR ---
PATIENT SITTING UP ON EDGE OF BED. BREATHING IS LABORED. PATIENT APPEARS VERY ANXIOUS. SHE IS NOT ACTIVELY DRY HEAVING AT THIS TIME. PRN REGLAN IV ADMINISTERED.
--- NOTE | 2017-06-25 06:16 | NUR ---
SVP RESEARCH AND STRATEGIC ANALYSIS PERFORMED VS. PATIENT IS FEELING LESS NAUSEOUS. LAYING IN BED NOW.
--- NOTE | 2017-06-25 06:17 | NUR ---
PATIENT SLEPT WELL MOST OF THE NIGHT. PRN NORCO X2, PRN MORPHINE X1. ZOFRAN X1, NOT EFFECTIVE. IV REGLAN X1 THIS AM FOR DRY HEAVING, THIS WAS EFFECTIVE. PATIENT BECOMES NAUSEOUS MOSTLY AFTER GETTING UP TO THE BATHROOM. ABD IS FLAT, TNEDER, BOWEL SOUNDS ACTIVE. DRESSING C/D/I. IV FLUIDS INFUSING.OUTPUT QS. PATIENT APPEARS VERY ANXIOUS AND EMOTIONAL.
--- NOTE | 2017-06-25 06:42 | NUR ---
IN ROOM TO ADMINISTER IV ABX, PT STATES SHE IS FEELING MUCH BETTER. SHE DENIES FURTHER NEEDS AT THIS TIME. CALL LIGHT IS WITHIN REACH.
--- NOTE | 2017-06-25 08:23 | NUR ---
patient ate about 50 percent of breakfast. pt stating that she had a rough night. stating he was sick and painful. pain okay at this time. patient stating that she is starting to feel mildly nauseated at this time. zofran given. call light within reach. iv fluids running wnl. active bs. patient lap sites wnl. old drain site has old dry drainage. scds applied. assessment complete.
--- NOTE | 2017-06-25 09:34 | NUR ---
daynetent ambulated in room. assisted to the br. patient voiding qs. rating pain 7/10 in abd. dressing have dry drainage. active bs. patient has not had a bm since admit. patient tolerated breakfast ( 50 percent). no nausea at this time. given norco 2 tabs and morning medication. plan to ambulate in denny after medication starts working. daughter in room.
--- NOTE | 2017-06-25 10:25 | NUR ---
caleb doing well. ambulated one lap in denny. assisted back to bed. reglan given for anticipation for lunch and pt stating she felt mildly nauseated. patient burping at this time.
--- NOTE | 2017-06-25 10:41 | NUR ---
PATIENT RELAXING IN BED. FAMILY MEMBER IN ROOM. CALL LIGHT WITHIN REACH. NO OTHER NEEDS AT THIS TIME.
--- NOTE | 2017-06-25 11:45 | NUR ---
PATIENT SITITNG UP ON EDGE OF BED EATING LUNCH. TOLERATING WELL. NO NAUSEA AT THSI TIME.
--- NOTE | 2017-06-25 12:10 | NUR ---
PATIENT AMBULATING IN [place] WITH REHABILITATION WORKER
--- NOTE | 2017-06-25 12:30 | NUR ---
PATIENT AMBULATED ANOTHER LAP IN [place] WITH REMOTE ENCODING CENTER MANAGER. TOLERATED WELL. NO NAUSEA AT THIS TIME. PAIN OKAY AT THIS TIME.
--- NOTE | 2017-06-25 14:00 | NUR ---
PATIENT STATING HER PAIN ABOUT 7/10 IN ABD 5/10 IN BACK. PATIENT GIVEN THE CHOICE OF ONE NORCO OR TWO. PATIENT STATED SHE WOULD LIKE 2 TABS NORCO. ZOFRAN GIVEN. ANTIBITOIC GIVEN VIA IV. NO OTHER COMPLAINTS AT THIS TIME. WE WILL AMBULATE IN WO[place] AFTER SOME REST.
--- NOTE | 2017-06-25 14:51 | NUR ---
PATIENT TRANSFERRED FROM BED TO RESTROOM. PATIENT SITTING ON SIDE OF BED NOW. PATIENT STATES THAT SHE FEELS NAUSEOUS AND IS "DRY HEAVING". RN NOTIFIED. CALL LIGHT WITHIN REACH. NO OTHER NEEDS AT THIS TIME.
--- NOTE | 2017-06-25 14:55 | NUR ---
OLIVIA GOT UP TO GO TO BR. PATIENT HAD 200MLS OF EMESIS. PATIENT ASSISTED BACK TO BED. STATING SHE JUST FEELS NAUSEATED. ADDED DOSE OF ZOFRAN GIVEN.
--- NOTE | 2017-06-25 15:30 | NUR ---
PATIENT GIVEN PO REGLAN FOR ANTICIPATION FOR DINNER THAT WILL BE COMING. FAMILY IS AT BEDSIDE. PATIENT STATING SHE IS FEELING BETTER AT THIS TIME.
--- NOTE | 2017-06-25 16:29 | NUR ---
PATIENT ASSITED TO THE BR. PATIENT TOLERATING WELL. VOIDED. ASSISTED FOR ANOTHER LAP IN [place] WITH WARNER
--- NOTE | 2017-06-25 16:30 | NUR ---
PATIENT DOING WELL TODAY. ONE EPISODE OF NAUSEA. TREATING WITH ZOFRAN AND REGLAN PO. 2 TABS NORCO GIVEN X2. PATIENT HAS AMBULATED IN [place] X 3. TOLERATING REGULAR DIET. VOIDING WELL. PLANNING ON DISCHARGING TOMORROW. LAP SITES WITH SMALL AMOUNT OF DRY BLOOD ON STERI STRIPS. ACTIVE BS. VITALS WNL.
--- NOTE | 2017-06-25 16:49 | NUR ---
PATIENT STATES SHE IS FEELING BETTER. PATIENT AMBULATING IN [place] WITH CRIPPLE CUTTER.
--- NOTE | 2017-06-25 18:47 | NUR ---
BOWEL CARE DISCUSSED WITH PATEINT. PATIENT WOULD LIKE TO TRY AND HAVE A BM STATING SHE THINKS THAT MAY BE CONTRIBUTING TO NAUSEA. COLASE GIVEN TONIGHT WITH PRUNE JUICE. PATIENT HAS BEEN ABLE TO TOLERATE SIPS OF PRUNE JUICE. PLAN TO ASK FOR SUPP IF COLASE HAS NO EFFECT. DISCUSSED WITH PATIENT.
--- NOTE | 2017-06-25 19:15 | NUR ---
SHIFT REPORT RECEIVED. PATIENT UP TO THE BATHROOM. SHE HAD SMALL AMOUNT OF EMESIS. NAUSEA HAS REDUCED NOW.
--- NOTE | 2017-06-25 21:15 | NUR ---
EVENING MEDS GIVEN PER ORDER. PATIENT UP TO THE BATHROOM. SBA W/FWW. PATIENT REPORTS PAIN IS WELL CONTROLLED BUT IS STILL HAVING NAUSEA. PRN ZOFRAN GIVEN. PATIENT REPORTS INCREASING FEELING OF CONSTIPATION, SUPPOSITIORY GIVEN PER ORDERS. PATIENT IS ORIENTED X4, APPEARS TIRED BUT NOT DISTRESSED. LUNGS ARE CLEAR. ABD IS FLAT, TENDER, BOWEL SOUNDS ACTIVE. CMS INTACT. PATIENT REFUSED SCDS. IV SL AT THIS TIME. PATIENT BACK RESTING IN BED. NO NEEDS AT THIS TIME. CALL LIGHT IN HAND.
--- NOTE | 2017-06-25 22:50 | NUR ---
SCHEDULED ABX ADMINISTERED. PATIENT RESTING IN BED. REPORTS FEELINGS SLIGHTLY "QUEEZEY" BUT BETTER THAN PREVIOUS. NO BM YET, BUT SHE HAS BEEN PASSING GAS. SHE DENIES ANY NEEDS AT THIS TIME. CALL LIGHT IN HAND.
--- NOTE | 2017-06-26 03:11 | NUR ---
HELPED PT TO THE BATHROOM WITH HER FWW. PT SAID SHE WILL CALL WHEN SHE IS DONE.
--- NOTE | 2017-06-26 03:12 | NUR ---
PT CALLED AND STATED SHE NEEDED A NEW PAD AND UNDERWEAR. I GAVE THEM TO HER , SHE WILL SIT ON THE TOILET FOR A LITTLE LONGER AND CALL WHEN SHE IS DONE.
--- NOTE | 2017-06-26 03:45 | NUR ---
PATIENT REQUESTED PRN PAIN MEDS FOR 7/10 PAIN. HER STOMACH IS SLIGHTLY NAUSEOUS, PRN ZOFRAN GIVEN WITH PRN NORCO. NO OTHER NEEDS AT THIS TIME.
--- NOTE | 2017-06-26 05:31 | NUR ---
HELPED PT TO THE BATHROOM WITH HER FWW. VITALS AND I&OS DONE AND CHARTED. HELPED PT BACK TO THE BED. SHE NEEDS NOTHING ELSE RIGHT NOW.
--- NOTE | 2017-06-26 05:37 | NUR ---
PATIENT SLEPT WELL DURING THE NIGHT. PRN ZOFRAN GIVEN WITH MEDS DUE TO NAUSEA. NO EMESIS THIS SHIFT. PRN NORCO X1. SUPPOSITORY PROVIDED AT START OF SHIFT, PATIENT PASSED SOME GAS AND WAS ABLE TO HAVE A VERY SMALL BM WITH BURRELL MUCOUS LIKE STOOL. PATIENT STATES THAT DID HELP HER STOMACH FEEL A LITTLE BETTER. IV SL. TOLERATING WATER. URINE OUTPUT QS.
--- NOTE | 2017-06-26 05:48 | NUR ---
MEDICAL SUPERINTENDENT IN ROOM FOR MORNING VS. PATIENT DENIES NAUSEA AND REPORTS GOOD PAIN CONTROL AT THIS TIME. CALL LIGHT IN REACH.
--- NOTE | 2017-06-26 06:32 | NUR ---
MORNING ABX GIVEN. PATIENT RESTING IN BED. REPORTS GOOD PAIN CONTROL. NO NAUSEA AT THIS TIME. REQUEST PRN REGLAN PRIOR TO BREAKFAST. NO OTHER NEEDS AT THIS TIME.
--- NOTE | 2017-06-26 07:44 | NUR ---
PT UP TO BATHROOM WITH 1 PERSON ASSIST WITH FWW, THEN TO RECLINER. PT REPORTED FEELING "QUEEZY". GAVE REGLAN 10 MG PO PRN.
--- NOTE | 2017-06-26 07:57 | NUR ---
PATIENT UP TO BATHROOM AND BACK TO CHAIR WITH STAND BY ASSIST WITH FWW. PATIENT WOULD LIKE TO WASH UP LATER THIS AM. BREAKFAST SET UP IN FRONT OF PATIENT WITH WARM BLANKET AND CALL BUTTON IN REACH. NO OTHER NEEDS AT THIS TIME.
--- NOTE | 2017-06-26 08:30 | NUR ---
PT REPORTED 6/10 PAIN TO BACK AND RLQ. GAVE NORCO 1 TAB PO PRN. PT SITTING UP IN RECLINER. REPORTED THAT SHE ATE "ABOUT HALF" OF HER BREAKFAST. DENIED NAUSEA. PERSONAL SUPPLIES AND CALL LIGHT IN REACH.
--- NOTE | 2017-06-26 10:25 | NUR ---
PT IN BED. REPORTED THAT PAIN TO ABDOMEN AND BACK WERE AT 7/10. GAVE NORCO 5/325 MG 1 TAB PO PRN. PERSONAL SUPPLIES AND CALL LIGHT IN REACH.
--- NOTE | 2017-06-26 10:32 | NUR ---
PATIENT RESTING IN BED WITH HER DAUGHTER IN ROOM. PATIENT RATES HER PAIN A 7 OUT OF 10 PAIN. RN NOTIFIED. PATIENT WASHED HER HANDS AND FACE WITH ORAL CARE DONE. PATIENT REFUSES BATH OR SHOWER AT THIS TIME AND WOULD LIKE TO SEE IF SHE CAN AT HOME TODAY. CALL BUTTON IN REACH. NO OTHER NEEDS AT THIS TIME.
--- NOTE | 2017-06-26 10:55 | NUR ---
CALLED, CONTINUE TO MONITOR B/P AT THIS TIME.
--- NOTE | 2017-06-26 11:01 | NUR ---
PT SITTING IN CHAIR-ALERT AND ORIENTED. BIG SMILE AND WARM INVITATION TO VISIT. SHE MENTIONED THAT SHE WAS FEELING BETTER. NOT MUCH SLEEP, ENCOURAGED HER TO NAP WHEN SHE CAN. HAD A PLEASANT VISIT-ITZEL GENAO IN TO DO VITALS. WILL CONTINUE TO FOLLOW NEEDED
--- NOTE | 2017-06-26 12:22 | NUR ---
PT IN BED, AWAKE, ALERT. PT'S DAUGHTER IN ROOM WITH PT. PT REPORTS THAT PAIN IS WELL CONTROLLED AT THIS TIME, AND DENIED NAUSEA. PT STATED THAT SHE WAS ABLE TO EAT "SOME" OF HER LUNCH, AND THAT SHE DRANK A "MILKSHAKE", AN ENSURE. PERSONAL SUPPLIES AND CALL LIGHT IN REACH.
--- NOTE | 2017-06-26 13:00 | NUR ---
PT IN BED, SITTING UP. ATE APROXIMATELY 30% OF LUNCH. DR. TEIXEIRA IN TO SEE PT. PT HAS KNEE HIGH SHANDA HOSE ON. PERSONAL SUPPLIES IN REACH, IS CALL BUTTON. PT DENIED NEEDS.
--- NOTE | 2017-06-26 13:32 | NUR ---
DR. HALL IN TO SEE PT. DISCUSSED PLAN FOR PT TO DISCHARGE TO HOME TODAY. PT VERBALIZED AGREEMENT.
[2017-06-26] MEDS ORDERED: METOCLOPRAMIDE10 MG PO (13:39)
[2017-06-26] MEDS ORDERED: MIRALAX17 GM PO (13:40)
[2017-06-26] MEDS ORDERED: MAPAP500 M1 PO (13:40)
[2017-06-26] MEDS ORDERED: DOCUSATE SODIU100 MG PO (13:40)
--- NOTE | 2017-06-26 14:44 | NUR ---
REVIEWED DISCHARGE INSTRUCIONS WITH PT AND PT'S DAUGHTER, ZAK. QUESTIONS ASKED AND ANSWERED, PT AND PT'S DAUGHTER VERBALIZED UNDERSTANDING. IV TO KERRI Drake/Regla'Noelle WNWing. PT CHANGED INTO STREET [employer]OTH[employer]. PT AND HER DAUGHTER ARE NOW RECIEVING EDUCATION FROM RAINE ANDERS.
--- NOTE | 2017-06-27 12:56 | DS ---
[facility] [address], [place] [address] Signed ADMISSION DATE: 06/20/2017 DISCHARGE DATE: 06/26/2017 REASON FOR ADMISSION: This 86-year-old white woman is frail, but very alert and oriented and a patient of Dr. Layne. She was referred from Dr. Layne directly to the emergency room with her left lower chronic back pain, as well as a known recurrent urinary tract infections, feeling sick, and unable to tolerate oral intake. Her evaluation in the emergency room was undertaken by Dr. Rivera, where IV fluids were administered. She was noted to have abdominal pain and left hip pain. A CT scan was performed, which showed no sign of diverticulitis, or perinephric abscess, but she did have an impressively elongated gallbladder, and dilated biliary tree. She is also noted to be significantly hypokalemic and dehydrated. She had no evidence of pancreatic neoplasm proper. She was admitted for further evaluation and care on the basis of her electrolyte abnormalities, dehydration, abnormal biliary tree, and enigmatic abdominal pain. PERTINENT PHYSICAL EXAMINATION: GENERAL: Showed a frail, pale skin, white woman who looked alert, and oriented and not demented at all. She had no active vomiting at the time of my evaluation. Trachea was midline. CHEST: Clear. There was no carotid bruit. ABDOMEN: Nondistended. There was a midline incision that is well healed. There is no evidence of incisional hernia. Palpation reveals no focal tenderness, mass, or ascites. LABORATORY DATA: White count was 9.0, hematocrit 43.3, platelets 256,000. Creatinine 0.77, potassium 2.8, chloride 104, bicarb 22. Liver enzymes normal. HOSPITAL COURSE: She was admitted, given fluid resuscitation, and EKG reviewed, which was normal. Her electrolytes corrected rapidly with appropriate fluids and placement of potassium. Given her impressively abnormal gallbladder, and biliary tree dilatation, an ultrasound was performed, which confirmed sludge or stone debris within the gallbladder. Uncertain whether or not this was in fact the source of her problems, upper endoscopy was performed, which showed no acute abnormality that would account for symptoms, specifically no evidence of gastric outlet obstruction, as had been postulated by others. There was no sign of ulceration either. It is recalled that she underwent perforated duodenal ulcer repair in 2015, by Dr. David Dong, which included a closure of a perforated duodenal ulcer, as well as an onlay patch of omentum. Electronically Signed By: CYRIL HALL MD 06/27/17 1256 PATIENT NAME: LAUREN KENT DISCHARGE SUMMARY DATE OF : 34 REPORT #: [id number] PHYSICIAN: CYRIL HALL MD PCP: VALDEZ LAYNE MD REPORT IS CONFIDENTIAL AND NOT TO BE RELEASED WITHOUT AUTHORIZATION [address] [address] Signed On the basis of these findings, it is considered probable that her symptoms were mostly related to chronic cholecystitis. It is notable that she has had profound and unrelenting left lower back pain. On that basis with the assistance of Katie Villaseñor CRNA, familiar with the ketamine infusion technique for chronic back pain. Ketamine infusion was undertaken, which lasted approximately 45 minutes and three such episodes were taken over three separate days. This did have much improvement of her chronic back pain it is noted. The day after her upper endoscopy, she did undergo laparoscopic cholecystectomy. This demonstrated a chronically inflamed, very elongated and chronically inflamed gallbladder, as well as impediment to biliary flow in the distal common duct thus prompting laparoscopic transcystic duct exploration, which included dilation flushing, and so forth. Completion of cholangiogram was normal. She again underwent ketamine infusion in the recovery room area, and additionally another episode the following day. This totaled three ketamine infusions. She had progressive improvement. She did note some marked improvement of oral intake, though she still had some episodes of nausea. Reglan was given, which was helpful to her anecdotal and although not needed on every occasion of eating has been somewhat helpful to her. By time of discharge, she rates her back pain at 5/10 (at admission 10/10), is able to eat. She does not have chronic nausea or vomiting. She is discharged to home in an improved condition. Mindful that additional ketamine infusion in the future may be of benefit. That remains to be determined. DISCHARGE MEDICATIONS: Will include, 1. Tylenol 500 mg p.o. q.6 hours p.r.n. pain #60. 2. DSS 200 mg p.o. daily. 3. MiraLAX 17 g packet b.i.d. as needed. 4. Reglan 10 mg t.i.d. before meals as needed #30, refill one. 5. She will continue with her simvastatin 40 mg p.o. daily. 6. Metoprolol 50 mg p.o. b.i.d. 7. [place] Thyroid 30 mg p.o. daily. 8. Vitamin A, C, and E with lutein (Ocuvite tablet) one p.o. daily. 9. Amlodipine 5 mg p.o. daily a day. 10. Aspirin 81 mg p.o. daily. 11. Nitrofurantoin 100 mg p.o. daily) for chronic UTI. DISCHARGE DIAGNOSES: 1. Asthmatic abdominal pain, inability to tolerate oral intake, probably related to Electronically Signed By: CYRIL HALL MD 06/27/17 1256 PATIENT NAME: LAUREN KENT DISCHARGE SUMMARY DATE OF : 34 REPORT #: [id number] PHYSICIAN: CYRIL HALL MD PCP: VALDEZ LAYNE MD REPORT IS CONFIDENTIAL AND NOT TO BE RELEASED WITHOUT AUTHORIZATION [facility] [address] [place], [place] [address] Signed chronic cholecystitis, status post laparoscopic cholecystectomy with laparoscopic common duct exploration. 2. Chronic left lower back pain, improved by ketamine infusion protocol, (three days ketamine infusion). 3. Hypertension. 4. Chronic constipation. 5. Distant history of perforated duodenal ulcer with repair and [place] patch in 2016, (Dr. David Dong). FOLLOWUP PLAN: She is return to see me in approximately a week. She will also follow up with Dr. Layne her usual physician. Whether or not additional ketamine infusion would be a benefit to her remains to be determined, though it does seem to have been helpful to her at this point. MD JAZMÍN Felipe/JEFF /[id number] cc: Dr. Rivera. Valdez Layne MD Copies: VALDEZ LAYNE MD ~ Electronically Signed By: CYRIL HALL MD 06/27/17 1256 PATIENT NAME: LAUREN KENT DISCHARGE SUMMARY DATE OF : 34 REPORT #: [id number] PHYSICIAN: CYRIL HALL MD PCP: VALDEZ LAYNE MD REPORT IS CONFIDENTIAL AND NOT TO BE RELEASED WITHOUT AUTHORIZATION
== END 2017-06-26 14:55 | disposition home or self-care (01) | DRG 419 ==
LOC: ED 08:16 → MS 12:42
PROVIDERS: ADMIT Surgery
PROC: 0DB98ZX Excision of Duodenum, Via Natural or Artificial Opening Endoscopic, Diagnostic (ICD-10-PCS; 2017-06-20)
PROC: 0DB78ZX Excision of Stomach, Pylorus, Via Natural or Artificial Opening Endoscopic, Diagnostic (ICD-10-PCS; 2017-06-20)
PROC: 0DB38ZX Excision of Lower Esophagus, Via Natural or Artificial Opening Endoscopic, Diagnostic (ICD-10-PCS; 2017-06-20)
PROC: 0F794ZZ Dilation of Common Bile Duct, Percutaneous Endoscopic Approach (ICD-10-PCS; 2017-06-22)
PROC: BF101ZZ Fluoroscopy of Bile Ducts using Low Osmolar Contrast (ICD-10-PCS; 2017-06-22)
PROC: 0FJB8ZZ Inspection of Hepatobiliary Duct, Via Natural or Artificial Opening Endoscopic (ICD-10-PCS; 2017-06-22)
PROC: 0FT44ZZ Resection of Gallbladder, Percutaneous Endoscopic Approach (ICD-10-PCS; principal; 2017-06-22 06:45)
DX: K80.10 Calculus of gallbladder with chronic cholecystitis without obstruction (principal); E86.0 Dehydration; E87.6 Hypokalemia; M51.36 Other intervertebral disc degeneration, lumbar region; I10 Essential (primary) hypertension; G89.29 Other chronic pain; E03.9 Hypothyroidism, unspecified; K59.09 Other constipation; K29.80 Duodenitis without bleeding; Z87.19 Personal history of other diseases of the digestive system; Z79.2 Long term (current) use of antibiotics; Z79.82 Long term (current) use of aspirin; Z79.899 Other long term (current) drug therapy; Z88.1 Allergy status to other antibiotic agents; Z87.440 Personal history of urinary (tract) infections; Z88.8 Allergy status to other drugs, medicaments and biological substances
CPT/HCPCS: 00790; 36415; 74177; 74300; 76705; 80048; 80053; 81001; 82247; 82465; 83605; 83615; 83690; 84100; 84478; 84550; 85025; 87040; 87088; 88304; 88305; 93005; 93010; 94762; C1894; J0131; J0330; J0690; J0735; J1100; J1644; J1885; J2270; J2405; J2550; J2704; J2765; J3475; J3480; J7030; J7040; J7120; Q9967

== ENCOUNTER 2018-10-15 18:18 | Inpatient (IN) | payer MEDICARE, OTHER ==
[~2018-10-15] VITALS: Ht 160 cm; Wt 48.2 kg
[~2018-10-15 18:18] MED LIST changes: +DOCUSATE SODIU100 MG PO; +GABAPENTIN100 MG PO; +MAPAP500 M1 PO; +METOCLOPRAMIDE10 MG PO; +MIRALAX17 GM PO; +NITROFURANTOIN100 M1 PO; +PAROXETINE HCL20 MG PO; +ULTRAM50 MG PO
--- OUTSIDE RECORDS SUMMARY | 2018-10-15 18:20 | XMS ---
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 [facility] VISIT COUNT (12 MO.) 2 [facility] TOTAL 2 NOTE: Visits indicate total known visits. 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
[2018-10-15] MEDS ORDERED: AUGMENTIN 875-1 EACH PO (18:34)
[2018-10-16] MEDS ORDERED: MIRALAX119 GM PO (13:53)
[2018-10-16] MEDS ORDERED: MAPAP500 M1 PO (13:58)
[2018-10-18] MEDS ORDERED: AMOX TR-K CLV1 EACH PO (11:37)
== END 2018-10-19 10:22 | disposition home health service (06) | DRG 689 ==
LOC: ED 18:18 → MS 22:03
PROVIDERS: ADMIT Internal Medicine
DX: N30.00 Acute cystitis without hematuria (principal); G93.41 Metabolic encephalopathy; F11.20 Opioid dependence, uncomplicated; E44.0 Moderate protein-calorie malnutrition; Z68.1 Body mass index [BMI] 19.9 or less, adult; B96.20 Unspecified Escherichia coli [E. coli] as the cause of diseases classified elsewhere; I10 Essential (primary) hypertension; E03.9 Hypothyroidism, unspecified; E86.0 Dehydration; E87.6 Hypokalemia; E78.5 Hyperlipidemia, unspecified; G89.29 Other chronic pain; M54.9 Dorsalgia, unspecified; R29.6 Repeated falls; Z66 Do not resuscitate; Z88.1 Allergy status to other antibiotic agents; Z88.8 Allergy status to other drugs, medicaments and biological substances; Z79.82 Long term (current) use of aspirin; Z79.899 Other long term (current) drug therapy
CPT/HCPCS: 70450; 73030; 74177; 80053; 83735; 85025; 85610; 85730; 87040; 97110; 97116; 97162; 97166; 97535; 99285-25; J0295; J1650; J3475; J3480; J7120; J7121; Q9967

== ENCOUNTER 2019-12-19 11:52 | Emergency (ER) | payer MEDICARE, OTHER ==
[~2019-12-19] VITALS: Ht 160 cm; Wt 48.3 kg
[~2019-12-19 11:52] MED LIST changes: +AMOX TR-K CLV1 EACH PO; +AUGMENTIN 875-1 EACH PO; +MIRALAX119 GM PO
--- OUTSIDE RECORDS SUMMARY | 2019-12-19 11:54 | XMS ---
PreManage Notification: LAUREN KENT Security Mft Events No recent Security Events currently on file CRITERIA MET - [facility] CARE PROVIDERS VALDEZ GUZMAN [facility] 10/16/2018-Current PHONE: [phone] Pierre has no Care Guidelines for this patient. [facility] VISIT COUNT (12 MO.) 1 [facility] TOTAL 1 NOTE: Visits indicate total known visits. ED/UCC VISIT TRACKING (12 MO.) 12/19/2019 11:53 [facility] [place] TYPE: Emergency COMPLAINT: - R ARM AND SHOULDER PAIN INPATIENT VISIT TRACKING (12 MO.) No inpatient visits to display in this time frame [id number]
[2019-12-19] MEDS ORDERED: NITROFURANTOIN100 MG PO (12:09)
[2019-12-19] MEDS ORDERED: TRAMADOL HCL50 MG PO (13:58)
[2019-12-19] MEDS ORDERED: KEFLEX500 MG PO (13:58)
--- NOTE | 2019-12-20 17:22 | EKG ---
[facility] [address] [facility] [place] [address] Signed Normal sinus rhythm Increased R/S ratio in V1, consider early transition or posterior infarct Abnormal ECG When compared with ECG of 01-OCT-2018 01:19, No significant change was found Confirmed by MARTHA MURILLO DO ([id number]) on 12/20/2019 5:22:00 PM Electronically Signed By: MARTHA MURILLO DO 12/20/19 1722 PATIENT NAME: LAUREN KENT Electrocardiogram DATE OF : 34 PHYSICIAN: MARTHA MURILLO DO REPORT #: [id number] REPORT IS CONFIDENTIAL AND NOT TO BE RELEASED WITHOUT AUTHORIZATION
== END 2019-12-19 14:42 | disposition home or self-care (01) ==
LOC: ED 11:52
DX: S46.811A Strain of other muscles, fascia and tendons at shoulder and upper arm level, right arm, initial encounter (principal); N39.0 Urinary tract infection, site not specified; W22.8XXA Striking against or struck by other objects, initial encounter; Z85.3 Personal history of malignant neoplasm of breast; I10 Essential (primary) hypertension; E03.9 Hypothyroidism, unspecified; Z88.8 Allergy status to other drugs, medicaments and biological substances; Z88.1 Allergy status to other antibiotic agents; Z79.899 Other long term (current) drug therapy; Z79.82 Long term (current) use of aspirin
CPT/HCPCS: 51701; 70450; 71045; 73080; 80053; 81001; 84484; 85025; 93005; 93010; 99284-25; J0696; J7030

== ENCOUNTER 2020-03-29 15:23 | Emergency (ER) | payer MEDICARE, OTHER ==
[~2020-03-29] VITALS: Ht 160 cm; Wt 51.9 kg
[~2020-03-29 15:23] MED LIST changes: +KEFLEX500 MG PO; +NITROFURANTOIN100 MG PO
--- OUTSIDE RECORDS SUMMARY | 2020-03-29 15:26 | XMS ---
PreManage Notification: LAUREN KENT Security Education Instructor Events No recent Security Events currently on file CRITERIA MET - [facility] CARE PROVIDERS VALDEZ GUZMAN [facility] 10/16/2018-Current PHONE: [phone] Pierre has no Care Guidelines for this patient. E[place] VISIT COUNT (12 MO.) 2 [facility] TOTAL 2 NOTE: Visits indicate total known visits. 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 - Striking against or struck by other objects, initial encounter - Personal history of malignant neoplasm of breast - Strain of other muscles, fascia and tendons at shoulder and upper arm level, right arm, initial encounter - Allergy status to other antibiotic agents - Essential (primary) hypertension - Pain in right shoulder - Urinary tract infection, site not specified - Hypothyroidism, unspecified - Allergy status to other drugs, medicaments and biological substances INPATIENT VISIT TRACKING (12 MO.) No inpatient visits to display in this time frame [id number]
[2020-03-29] MEDS ORDERED: BACTRIM DS TAB1 EACH PO (17:34)
--- NOTE | 2020-03-30 13:36 | EKG ---
[facility] [address] [facility] [place] [address] Signed Normal sinus rhythm Normal ECG When compared with ECG of 19-DEC-2019 12:19, No significant change was found Confirmed by ALEXIS CULP MD ([id number]) on 03/30/2020 1:35:48 PM Electronically Signed By: ALEXIS CULP MD 03/30/20 1336 PATIENT NAME: LAUREN KENT Electrocardiogram DATE OF : 34 PHYSICIAN: ALEXIS CULP MD REPORT #: [id number] REPORT IS CONFIDENTIAL AND NOT TO BE RELEASED WITHOUT AUTHORIZATION
== END 2020-03-29 17:55 | disposition home or self-care (01) ==
LOC: ED 15:23
DX: N39.0 Urinary tract infection, site not specified (principal); D72.829 Elevated white blood cell count, unspecified; E87.1 Hypo-osmolality and hyponatremia; I10 Essential (primary) hypertension; E03.9 Hypothyroidism, unspecified; Z20.822 Contact with and (suspected) exposure to COVID-19; Z88.1 Allergy status to other antibiotic agents; Z88.8 Allergy status to other drugs, medicaments and biological substances; Z79.899 Other long term (current) drug therapy; Z79.82 Long term (current) use of aspirin
CPT/HCPCS: 71045; 80053; 81001; 83605; 83690; 84484; 85025; 87040; 87077; 87088; 87186; 93005; 93010; 96365; 96375; 99284-25; C9803; J0696; J2405; J7030; U0003

== ENCOUNTER 2020-03-31 12:45 | Emergency (ER) | payer MEDICARE, OTHER ==
[~2020-03-31] VITALS: Ht 160 cm; Wt 51.9 kg
[~2020-03-31 12:45] MED LIST changes: +BACTRIM DS TAB1 EACH PO
--- OUTSIDE RECORDS SUMMARY | 2020-03-31 12:48 | XMS ---
PreManage Notification: LAUREN KENT Security Transition Program Manager Events No recent Security Events currently on file CRITERIA MET - [facility] - 2 Visits in 30 Days CARE PROVIDERS VALDEZ GUZMAN [facility] 10/16/2018-Current PHONE: [phone] Pierre has no Care Guidelines for this patient. [place] VISIT COUNT (12 MO.) [address] [place] [address] TOTAL 3 NOTE: Visits indicate total known visits. 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
[2020-03-31] MEDS ORDERED: CEPHALEXIN500 M1 PO (14:27)
== END 2020-03-31 15:10 | disposition home or self-care (01) ==
LOC: ED 12:45
DX: N39.0 Urinary tract infection, site not specified (principal); R78.81 Bacteremia; Z85.3 Personal history of malignant neoplasm of breast; I10 Essential (primary) hypertension; E03.9 Hypothyroidism, unspecified; Z88.1 Allergy status to other antibiotic agents; Z88.8 Allergy status to other drugs, medicaments and biological substances; Z79.899 Other long term (current) drug therapy; Z79.82 Long term (current) use of aspirin
CPT/HCPCS: 80053; 83605; 85025; 96374; 99284-25; J0696; J7040